=== PATIENT | female | born 1960 | race African-American/Black ===

== ENCOUNTER 2017-05-09 22:41 | Emergency (ER) | payer OTHER ==
[~2017-05-09] VITALS: Ht 160 cm; Wt 58.9 kg
[2017-05-09 22:50] VITALS: Ht 160 cm; Wt 58.9 kg
[2017-05-09 22:51] VITALS: TEMP 98.5
--- NOTE | 2017-05-09 22:54 | ERD ---
ER Documentation Chief Complaint Chief Complaint Hi Blood pressure HPI The patient is a 57-year-old female, was diverted to emergency department because of high blood pressure when she arrived at [facility] from [facility]. 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 Allergies Allergies: Coded Allergies: No Known Allergy (Unverified , 05/09/17) Physical Exam Vitals Vital Signs Date Time Temp Pulse Resp B/P Pulse Ox O2 Delivery O2 Flow Rate FiO2 05/10/17 00:45 96 27 100 30 05/09/17 22:51 98.5 75 18 145/81 100 Mechanical Ventilator 05/09/17 22:50 102 30 100 30 05/09/17 22:50 98.8 102 25 165/89 98 Physical Exam Const: No acute distress. Head: Atraumatic. Eyes: Normal Conjunctiva. ENT: Normal External Ears, Nose and Mouth. Neck: Full range of motion. No meningismus.Trach Resp: Clear to auscultation bilaterally. Cardio: Regular tachycardic Abd: Soft, non distended, normal bowel sounds, non tender.GT Skin: No petechiae or rashes. Back: No midline or flank tenderness. Ext: No cyanosis, or edema. Neur: Limited due to her condition Psych: Limited due to her condition Result Diagram: 05/09/17 2326 05/09/17 2326 Results 24 hrs Laboratory Tests Test 05/09/17 23:07 05/09/17 23:26 Blood Gas Specimen Source Blood arterial Arterial Blood Date Drawn 05/09/2017 11:35:56 PM Arterial Blood pH (Temp corrected) 7.436 Arterial Blood pCO2 (Temp correct) 39.1mmhg Arterial Blood pO2 (Temp corrected) 90.7mmHG Arterial Blood HCO3 25.7mmol/L Arterial Blood Base Excess 1.5mmol/L Arterial Blood Oxygen Saturation 97.0mmHG Maury Test ACCEPTAB Arterial Blood Gas Puncture Site Right Radial Arterial Blood Carboxyhemoglobin 0.3% Arterial Blood Methemoglobin 0% Blood Gas A-a O2 Differential 77.3mmHg Oxyhemoglobin Percent 96.7% Total Hemoglobin 12.7g/dl Blood Gas Temperature 37.0C Blood Gas Respiration Rate 16.0 Blood Gas Actual Respiration Rate 26 Blood Gas Modality VENT - AC FiO2 30.0% Blood Gas Tidal Volume 450.0mL Blood Gas Mean Airway Pressure 8.5 Blood Gas Low PEEP Setting 5.0cmH2O Blood Gas Inspiratory Pressure 16.0 Blood Gas Critical Value Read Back Vanesa BAZZI Blood Gas Notified Whom BL Blood Gas Notified Time 05/09/2017 11:46:47 PM White Blood Count 10.510^3/ul Red Blood Count 3.8810^6/ul Hemoglobin 11.7g/dl Hematocrit 35.4% Mean Corpuscular Volume 91.2fl Mean Corpuscular Hemoglobin 30.2pg Mean Corpuscular Hemoglobin Concent 33.1g/dl Red Cell Distribution Width 14.3% Platelet Count 09386^3/UL Mean Platelet Volume 10.0fl Neutrophils % 72.0% Lymphocytes % 17.3% Monocytes % 9.4% Eosinophils % 0.4% Basophils % 0.5% Nucleated Red Blood Cells % 0.0/100WBC Neutrophils # 7.510^3/ul Lymphocytes # 1.810^3/ul Monocytes # 1.010^3/ul Eosinophils # 0.010^3/ul Basophils # 0.110^3/ul Nucleated Red Blood Cells # 0.010^3/ul Prothrombin Time 14.0Sec Prothrombin Time Ratio 1.1 INR International Normalized Ratio 1.07 Activated Partial Thromboplast Time 37.4Sec Sodium Level 144mmol/L Potassium Level 4.3mmol/L Chloride Level 109mmol/L Carbon Dioxide Level 24mmol/L Anion Gap 15 Blood Urea Nitrogen 14mg/dl Creatinine 0.65mg/dl Glucose Level 103mg/dl Calcium Level 9.5mg/dl Current Medications Medications (Trade) Dose Ordered Sig/Adolph Route PRN Reason Start Time Stop Time Status Last Admin Dose Admin Midazolam HCl (Versed) 5 mg ONCE PRN IV AGITATION 05/10/17 00:30 05/10/17 00:49 Procedures/MDM [address] [address] Radiology Main Line: [phone] DIAGNOSTIC IMAGING REPORT Patient: LOUIE WEST : 1960 Age: 57 Sex: F MR #: [id number] DOS: 05/09/172306 Ordering MD: MICHELLE MEAD MD Location: E/R Room/Bed: PROCEDURE: XR Chest. CLINICAL INDICATION: Chest Pain. TECHNIQUE: Single frontal view of the chest was obtained COMPARISON: None FINDINGS: Tracheostomy tube tip overlying the mid thoracic trachea. The heart and mediastinum are within normal limits. The lungs are clear. There is no pleural effusion or pneumothorax. Degenerative changes of the spine are present. IMPRESSION: 1. No acute cardiopulmonary disease. RPTAT:AAJJ Yolande Martins Physician Date Time Electronically viewed and signed by Yolande Martins Physician on 05/09/2017 23:59 QL/ CC: MICHELLE MEAD MD [place] [id number] Radiology Main Line: [phone] DIAGNOSTIC IMAGING REPORT Patient: LOUIE WEST : 1960 Age: 57 Sex: F MR #: [id number] DOS: 05/09/172306 Ordering MD: MICHELLE MEAD MD Location: E/R Room/Bed: PROCEDURE: CT BRAIN WITHOUT CONTRAST CLINICAL INDICATION: 57-year-old female with headaches. TECHNIQUE: The study was performed utilizing [employer] VCT 64-slice CT scanner. Direct axial sections were obtained from the foramen magnum to the vertex without the use of intravenous contrast material. Sagittal and coronal reformations were obtained. One or more of the following dose reduction techniques were utilized: automated exposure control, adjustment of the mA and/ or kV according to patient's size and/or use of iterative reconstruction technique. DICOM images are available. The images were viewed on a PACS workstation. CTD/vol = 45.0 mGy; Total Exam DLP = 810.3 mGy-cm. COMPARISON: CT brain May 04, 2017 and April 30, 2017 performed at [facility]. FINDINGS: There is diffuse decreasing density and volume within the previously identified hemorrhage in the left thalamus extending into the cerebral peduncle. There is mild residual blood identified within the third ventricle as well as within the occipital horns of the lateral ventricles. There is a right transfrontal ventriculoperitoneal shunt present traversing the right lateral ventricle with the tip extending through the foramen of Monro into the roof of the third ventricle without interval change. There is a adjacent linear hemorrhagic tract extending into the right thalamus and cerebral peduncle without interval change. There has been interval decrease in the size of the lateral ventricles with mild residual prominence. There is no significant midline shift. There are extensive periventricular deep white matter areas of decreased density most likely representing microangiopathic ischemic changes and minimal residual transependymal resorption of CSF. There is an old lacunar infarct within the mid daniel. There is mild prominence of the sulci and cisternal spaces consistent with diffuse volume loss. The partially visualized paranasal sinuses and left mastoid air cells are without significant abnormal soft tissue. There is mild soft tissue within the dependent portion of the right mastoid air cells without interval change. IMPRESSION: 1. Evolving left thalamic/cerebral peduncle hemorrhage with interval decrease in density and volume. 2. Mild residual intraventricular blood within the third ventricle and occipital horns. 3. Right transfrontal ventriculoperitoneal shunt with the tip in the roof of the third ventricle. 4. Linear hemorrhagic tract adjacent to the shunt extending to the right thalamus and cerebral peduncle without interval change. 5. Mild prominence of the ventricular system with interval decrease in hydrocephalus. 6. Microangiopathic ischemic changes with minimal residual transependymal resorption of CSF. 7. Old mid daniel lacunar infarct. 8. Mild dependent soft tissue within the right mastoid air cells without interval change. .Shilo Egan MD, Date Time Electronically viewed and signed by .Shilo Egan MD, MD on 05/10/2017 01:42 .M/ CC: MICHELLE MEAD MD EKG: Read by emergency physician Rate/Rhythm: Sinus tachycardia 104 beats/min QRS, ST, T-waves: No ST elevation, no T inversion Impression: Abnormal EKG MEDICAL MAKING DECISION: The patient is a 57-year-old female, with acute accelerated hypertension that improved by itself. She did not require any intervention. There is no acute process, she is stable for outpatient follow-up The differential diagnoses considered include but are not limited to anxiety attack, panic attack, acute on chronic pain Departure Diagnosis: Primary Impression: Hypertension Additional Impression: Anemia Condition: Good Comments I discussed the findings with the patient. I advised the patient to follow-up with the primary physician in about 1-2 days, sooner if needed and return if any concern. Disclaimer: Inadvertent spelling and grammatical errors are likely due to EHR/ dictation software use and do not reflect on the overall quality of patient care. Also, please note that the electronic time recorded on this note does not necessarily reflect the actual time of the patient encounter. MICHELLE MEAD MD May 09, 2017 22:54
[2017-05-09 23:46] LABS: AADO2 Arterial 77.3 mmHg (7.0-24.0); Allen Test ACCEPTAB; Arterial Base Excess 1.5 mmol/L (-3.0-3); Arterial COHb 0.3 % (0.0-3.0); Arterial Fraction of Oxyhgb 96.7 % (93.0-99.0); Arterial HCO3 25.7 mmol/L (22.0-26.0); Arterial MetHb 0 % (0.0-1.5); Arterial Total Hemglobin 12.7 g/dl (12.0-18.0); Blood Gas Mean Airway Pressure 8.5; MODE VENT - AC
[2017-05-09 23:48] LABS: BASOPHIL # 0.1 10^3/ul (0.0-0.1); BASOPHILS % 0.5 % (0.0-2.0); EOSINOPHILS % 0.4 % (0.0-7.0); HEMATOCRIT 35.4 % (37.0-47.0); HEMOGLOBIN 11.7 g/dl (12.0-16.0); LYMPHOCYTES # 1.8 10^3/ul (0.8-2.9); LYMPHOCYTES % 17.3 % (15.0-51.0); MEAN CORPUSCULAR HEMOGLOBIN 30.2 pg (29.0-33.0); MEAN CORPUSCULAR HGB CONC 33.1 g/dl (32.0-37.0); MEAN CORPUSCULAR VOLUME 91.2 fl (82.0-101.0); MONOCYTES % 9.4 % (0.0-11.0); NEUTROPHIL # 7.5 10^3/ul (1.6-7.5); PLATELET COUNT 374 10^3/UL (140-415); RED BLOOD COUNT 3.88 10^6/ul (4.20-5.40); RED CELL DISTRIBUTION WIDTH 14.3 % (11.5-14.5); WHITE BLOOD COUNT 10.5 10^3/ul (4.8-10.8)
--- NOTE | 2017-05-09 23:59 | RADRPT ---
PROCEDURE: XR Chest. CLINICAL INDICATION: Chest Pain. TECHNIQUE: Single frontal view of the chest was obtained COMPARISON: None FINDINGS: Tracheostomy tube tip overlying the mid thoracic trachea. The heart and mediastinum are within normal limits. The lungs are clear. There is no pleural effusion or pneumothorax. Degenerative changes of the spine are present. IMPRESSION: 1. No acute cardiopulmonary disease. RPTAT:AAJJ Yolande Martins Physician Date Time Electronically viewed and signed by Yolande Martins Physician on 05/09/2017 23:59 QL/
[2017-05-10 00:09] LABS: INR 1.07; PT RATIO 1.1
[2017-05-10 00:10] LABS: PARTIAL THROMBOPLASTIN TIME 37.4 Sec (25.0-35.0)
[2017-05-10 00:25] LABS: CALCIUM 9.5 mg/dl (8.4-10.2); CREATININE 0.65 mg/dl (0.44-1.00); POTASSIUM 4.3 mmol/L (3.5-5.1)
[2017-05-10] MEDS ORDERED: MIDAZOLAM 1 MG/ML 2 ML INJ IV PRN (00:30)
--- NOTE | 2017-05-10 01:42 | RADRPT ---
PROCEDURE: CT BRAIN WITHOUT CONTRAST CLINICAL INDICATION: 57-year-old female with headaches. TECHNIQUE: The study was performed utilizing [employer] VCT 64-slice CT scanner. Direct axial sections were obtained from the foramen magnum to the vertex without the use of intravenous contrast material. Sagittal and coronal reformations were obtained. One or more of the following dose reduc tion techniques were utilized: automated exposure control, adjustment of the mA and/or kV according to patient's size and/or use of iterative reconstruction technique. DICOM images are available. The images were viewed on a PACS workstation. CTD/vol = 45.0 mGy; Total Exam DLP = 810.3 mGy-cm. COMPARISON: CT brain May 04, 2017 and April 30, 2017 performed at [facility]. FINDINGS: There is diffuse decreasing density and volume within the previously identified hemorrhage in the le ft thalamus extending into the cerebral peduncle. There is mild residual blood identified within the third ventricle as well as within the occipital horns of the lateral ventricles. There is a right t ransfrontal ventriculoperitoneal shunt present traversing the right lateral ventricle with the tip e xtending through the foramen of Monro into the roof of the third ventricle without interval change. There is a adjacent linear hemorrhagic tract extending into the right thalamus and cerebral peduncle without interval change. There has been interval decrease in the size of the lateral ventricles wit h mild residual prominence. There is no significant midline shift. There are extensive periventricul ar deep white matter areas of decreased density most likely representing microangiopathic ischemic c hanges and minimal residual transependymal resorption of CSF. There is an old lacunar infarct within the mid daniel. There is mild prominence of the sulci and cisternal spaces consistent with diff use volume loss. The partially visualized paranasal sinuses and left mastoid air cells are without significant abnormal soft tissue. There is mild soft tissue within the dependent portion of the righ t mastoid air cells without interval change. IMPRESSION: 1. Evolving left thalamic/cerebral peduncle hemorrhage with interval decrease in density and volume . 2. Mild residual intraventricular blood within the third ventricle and occipital horns. 3. Right transfrontal ventriculoperitoneal shunt with the tip in the roof of the third ventricle. 4. Linear hemorrhagic tract adjacent to the shunt extending to the right thalamus and cerebral pedu ncle without interval change. 5. Mild prominence of the ventricular system with interval decrease in hydrocephalus. 6. Microangiopathic ischemic changes with minimal residual transependymal resorption of CSF. 7. Old mid daniel lacunar infarct. 8. Mild dependent soft tissue within the right mastoid air cells without interval change. .Shilo Egan MD, Date Time Electronically viewed and signed by .Shilo Egan MD, MD on 05/10/2017 01:42 .Av/
[2017-05-10 03:00] VITALS: BP 132/85; PULSE 83
[2017-05-10 04:45] VITALS: RESP 28
== END 2017-05-10 05:09 | disposition home or self-care (01) ==
LOC: E/R 22:41
DX: I10 Essential (primary) hypertension (principal); F41.9 Anxiety disorder, unspecified; R07.9 Chest pain, unspecified; R51 Headache
CPT/HCPCS: 36600; 70450; 71010; 80048; 82803; 85025; 85610; 85730; 93005; 94002; 94003; J2250; Z7610; 36415; 96374

== ENCOUNTER 2017-05-12 04:27 | Inpatient (IN) | payer OTHER ==
[2017-05-12] VITALS (7 sets, daily range): BP systolic 140–141; BP diastolic 82–92; PULSE 103; RESP 17–45; TEMP 100.7; Ht 157.5 cm; Wt 68.0 kg
[~2017-05-12] VITALS: Ht 157.5 cm; Wt 68.0 kg
[2017-05-12] MEDS ORDERED: PIPER-TAZO 3.375 GM IV (PMX) 50 ML IVPB STA (04:38)
[2017-05-12 05:55] LABS: BASOPHIL # 0.1 10^3/ul (0.0-0.1); BASOPHILS % 0.6 % (0.0-2.0); EOSINOPHILS % 0.2 % (0.0-7.0); HEMATOCRIT 36.6 % (37.0-47.0); LYMPHOCYTES % 16.6 % (15.0-51.0); MEAN CORPUSCULAR HEMOGLOBIN 29.9 pg (29.0-33.0); MEAN CORPUSCULAR HGB CONC 32.8 g/dl (32.0-37.0); MEAN PLATELET VOLUME 10.8 fl (7.4-10.4); MONOCYTE # 0.9 10^3/ul (0.3-0.9); MONOCYTES % 7.3 % (0.0-11.0); NEUTROPHIL # 9.1 10^3/ul (1.6-7.5); PLATELET COUNT 430 10^3/UL (140-415); RED BLOOD COUNT 4.02 10^6/ul (4.20-5.40); RED CELL DISTRIBUTION WIDTH 14.2 % (11.5-14.5); WHITE BLOOD COUNT 12.2 10^3/ul (4.8-10.8)
--- NOTE | 2017-05-12 05:58 | RADRPT ---
PROCEDURE: CHEST - 1 VIEW CLINICAL INDICATION: 57-year-old female with shortness of breath and sepsis. TECHNIQUE: A single frontal AP portable view of the chest was performed. The images were reviewed on a PACS workstation. COMPARISON: Chest x-ray May 09, 2017. FINDINGS: There is a tracheostomy tube in place. The cardiomediastinal silhouette is within normal limits. Chr onic lung changes are present. There is no evidence for focal consolidation. There is no evidence fo r pneumothorax. Surgical clips are seen within the right upper quadrant from prior cholecystectomy. Thoracolumbar scoliosis is present. Degenerative changes are visualized within the spine. IMPRESSION: 1. Tracheostomy tube. 2. Chronic lung changes. 3. Status post cholecystectomy. 4. Thoracolumbar scoliosis with degenerative changes. .Shilo Egan MD, Date Time Electronically viewed and signed by .Shilo Egan MD, on 05/12/2017 05:58 .M/
[2017-05-12 06:15] LABS: ADD UMIC YES; UR ASCORBIC ACID 40 mg/dL (NEGATIVE); UR BACTERIA FEW /HPF (NONE SEEN); UR BILIRUBIN (Dip) NEGATIVE (NEGATIVE); UR BLOOD (Dip) NEGATIVE (NEGATIVE); UR BUDDING YEAST MANY /HPF (NONE SEEN); UR CLARITY SLIGHTLY CLOUDY (CLEAR); UR COLOR YELLOW (YELLOW); UR GLUCOSE (Dip) NEGATIVE (NEGATIVE); UR KETONES (Dip) 1+ mg/dL (NEGATIVE); UR LEUKOCYTE ESTERASE (Dip) 1+ Leu/ul (NEGATIVE); UR MUCUS FEW /HPF (NONE SEEN); UR NITRITE (Dip) NEGATIVE (NEGATIVE); UR RBC 2 /HPF (0-5); UR SPECIFIC GRAVITY (Dip) 1.033 (1.003-1.030); UR TOTAL PROTEIN (Dip) 1+ mg/dl (NEGATIVE); UR UROBILINOGEN (Dip) 1+ mg/dL (NEGATIVE)
[2017-05-12 06:17] LABS: ALBUMIN 3.7 g/dl (3.3-4.9); ALBUMIN/GLOBULIN RATIO 0.92; BILIRUBIN,INDIRECT 0.3 mg/dl (0-1.1); BILIRUBIN,TOTAL 0.3 mg/dl (0.2-1.3); CALCIUM 9.7 mg/dl (8.4-10.2); CREATININE 0.82 mg/dl (0.44-1.00); POTASSIUM 4.1 mmol/L (3.5-5.1); TOTAL PROTEIN 7.7 g/dl (6.1-8.1)
[2017-05-12 06:24] LABS: INR 1.01; PROTIME 13.4 Sec (11.9-14.9)
[2017-05-12 06:25] LABS: PARTIAL THROMBOPLASTIN TIME 36.5 Sec (25.0-35.0)
[2017-05-12 06:28] LABS: TROPONIN-I 0.016 ng/ml (0.00-0.12)
[2017-05-12] MEDS ORDERED: ONDANSETRON 4 MG INJ IV PRN ×2 (07:00→15:00)
[2017-05-12] MEDS ORDERED: SOD CHLORIDE 0.9% 1,000 ML IV ONE ×2 (07:00)
[2017-05-12] MEDS ORDERED: ACETAMINOPHEN 325 MG TAB PO PRN (07:00)
[2017-05-12] MEDS ORDERED: SOD CHLORIDE 0.9% 500 ML IV ONE (07:00)
--- NOTE | 2017-05-12 08:14 | ERD ---
ER Documentation Chief Complaint Chief Complaint TACHYCARDIA HPI This 57-year-old female was sent from her detention facility for tachycardia. She is unfortunate chronic trach vent patient. She is nonverbal. History is obtained from paramedics. No fevers reported the patient did feel warm according to paramedics. No further symptomatic report was given. ROS Unobtainable Allergies Allergies: Coded Allergies: No Known Allergy (Unverified , 05/09/17) PMhx/Soc History of Surgery: Yes Anesthesia Reaction: Yes Hx Neurological Disorder: No Hx Respiratory Disorders: Yes (vent trach) Hx Cardiac Disorders: Yes (htn, hyperlipidemia, ) Hx Psychiatric Problems: No Hx Miscellaneous Medical Probl: No Hx Alcohol Use: No Hx Substance Use: No Hx Tobacco Use: No Smoking Status: Unknown if ever smoked Physical Exam Vitals Vital Signs Date Time Temp Pulse Resp B/P Pulse Ox O2 Delivery O2 Flow Rate FiO2 05/12/17 07:53 127 29 100 40 05/12/17 06:13 125 30 159/83 100 Mechanical Ventilator 05/12/17 05:54 116 32 100 40 05/12/17 05:00 123 22 174/123 100 Mechanical Ventilator 05/12/17 04:51 127 26 125/87 Mechanical Ventilator 05/12/17 04:47 128 36 100 40 05/12/17 04:42 100.5 117 29 125/87 100 Physical Exam Const: [] Moderate distress, appears uncomfortable Head: Atraumatic Eyes: Normal Conjunctiva ENT: Normal External Ears, Nose and Mouth. Dry mucous membranes of the mouth Neck: Full range of motion.. Trach site clean dry intact Resp: Clear to auscultation bilaterally Cardio: Regular rate and rhythm, no murmurs Abd: Soft, apparent tenderness, right abdomen with horizontal surgical incision repaired with rhiannon. non distended. Normal bowel sounds Skin: No petechiae or rashes Back: No midline or flank tenderness Ext: No cyanosis, left proximal forearm with erythematous raised area with no fluctuance with surrounding calor. Distal pulses intact all 4 extremities. Neur: Awake and alert, unable to participate with neurological exam. Positive deep tendon reflexes of the patellar area. Psych: Normal Mood and Affect Result Diagram: 05/12/17 0445 05/12/17 0613 Results 24 hrs Laboratory Tests Test 05/12/17 04:45 05/12/17 05:25 05/12/17 06:13 05/12/17 06:16 White Blood Count 12.210^3/ul Red Blood Count 4.0210^6/ul Hemoglobin 12.0g/dl Hematocrit 36.6% Mean Corpuscular Volume 91.0fl Mean Corpuscular Hemoglobin 29.9pg Mean Corpuscular Hemoglobin Concent 32.8g/dl Red Cell Distribution Width 14.2% Platelet Count 11633^3/UL Mean Platelet Volume 10.8fl Neutrophils % 75.0% Lymphocytes % 16.6% Monocytes % 7.3% Eosinophils % 0.2% Basophils % 0.6% Nucleated Red Blood Cells % 0.0/100WBC Neutrophils # 9.110^3/ul Lymphocytes # 2.010^3/ul Monocytes # 0.910^3/ul Eosinophils # 0.010^3/ul Basophils # 0.110^3/ul Nucleated Red Blood Cells # 0.010^3/ul Prothrombin Time 13.4Sec Prothrombin Time Ratio 1.0 INR International Normalized Ratio 1.01 Activated Partial Thromboplast Time 36.5Sec Lactic Acid Level 1.1mmol/L 0.9mmol/L Urine Color YELLOW Urine Clarity SLIGHTLY CLOUDY Urine pH 5.0 Urine Specific Dameron 1.033 Urine Ketones 1+mg/dL Urine Nitrite NEGATIVEmg/dL Urine Bilirubin NEGATIVEmg/dL Urine Urobilinogen 1+mg/dL Urine Leukocyte Esterase 1+Maximiliano/ul Urine Microscopic RBC 2/HPF Urine Microscopic WBC 39/HPF Urine Calcium Oxalate Crystals FEW/HPF Urine Bacteria FEW/HPF Urine Mucus FEW/HPF Urine Yeast (Budding) MANY/HPF Urine Hemoglobin NEGATIVEmg/dL Urine Glucose NEGATIVEmg/dL Urine Total Protein 1+mg/dl Sodium Level 147mmol/L Potassium Level 4.1mmol/L Chloride Level 107mmol/L Carbon Dioxide Level 28mmol/L Anion Gap 16 Blood Urea Nitrogen 25mg/dl Creatinine 0.82mg/dl Glucose Level 112mg/dl Calcium Level 9.7mg/dl Total Bilirubin 0.3mg/dl Direct Bilirubin 0.00mg/dl Indirect Bilirubin 0.3mg/dl Aspartate Amino Transf (AST/SGOT) 30IU/L Alanine Aminotransferase (ALT/SGPT) 71IU/L Alkaline Phosphatase 124IU/L Troponin I 0.016ng/ml Total Protein 7.7g/dl Albumin 3.7g/dl Globulin 4.00g/dl Albumin/Globulin Ratio 0.92 Current Medications Medications (Trade) Dose Ordered Sig/Adolph Route PRN Reason Start Time Stop Time Status Last Admin Dose Admin Piperacillin Sod/ Tazobactam Sod (Zosyn 3.375gm/ 50 ml (Pmx)) 50 ml @ 100 mls/hr ONCE STAT IVPB 05/12/17 04:38 05/12/17 05:07 DC 05/12/17 05:44 Ondansetron HCl (Zofran Inj) 4 mg ER BRIDGE PRN IV NAUSEA AND/OR VOMITING 05/12/17 07:00 05/13/17 06:59 Acetaminophen 650 mg 650 mg ER BRIDGE PRN PO MILD PAIN/FEVER 05/12/17 07:00 05/13/17 06:59 Sodium Chloride 1,000 ml @ 1,000 mls/hr Q1H ONCE IV 05/12/17 07:00 05/12/17 07:59 DC 05/12/17 07:47 Sodium Chloride 1,000 ml @ 1,000 mls/hr Q1H ONCE IV 05/12/17 07:00 05/12/17 07:59 DC 05/12/17 07:47 Sodium Chloride (NS) 500 ml @ 500 mls/hr Q1H ONCE IV 05/12/17 07:00 05/12/17 07:59 DC 05/12/17 07:48 Procedures/MDM UTI with sepsis leading to the patient's tachycardia. Respiratory status is adequate on baseline ventilator settings. Patient was treated with normal saline and given Zosyn empirically. CT abdomen pelvis is pending and patient does have evidence of surgical wounds. She also seems to have a cellulitis of her left forearm. Given her debilitated condition she definitely needs to be admitted for further antibiotic therapy and prevention of progression of her sepsis. Currently no lactic acid elevation. Spoke with be admitting the patient to telemetry. EKG interpretation: Sinus tachycardia rate of 115, normal axis, no ST or T-wave changes concerning for acute ischemia, nonspecific ST-T wave abnormality, normal intervals. Abnormal EKG clinical research monitor interpretation: Persistent sinus tachycardia without other arrhythmia Chest x-ray interpretation: See no acute process, no consolidation, no fracture , no pneumothorax, no pulmonary edema Care time greater than 35 minutes: This includes management of sepsis and debilitated patient, careful fluid administration, antibiotic administration, treatment and management of unstable vital signs, all visits patient's bedside to reassess status, review of chart, discussion with admitting doctor. Does not include billable procedure Departure Diagnosis: Primary Impression: Sepsis secondary to UTI Additional Impression: Right forearm cellulitis Condition: Serious GAIL MADDOX DO May 12, 2017 08:14
[2017-05-12 08:25] LABS: AADO2 Arterial 135.9 mmHg (7.0-24.0); Allen Test ACCEPTAB; Arterial Base Excess 3.6 mmol/L (-3.0-3); Arterial COHb 0 % (0.0-3.0); Arterial Fraction of Oxyhgb 98.2 % (93.0-99.0); Arterial HCO3 26.4 mmol/L (22.0-26.0); Arterial MetHb 0 % (0.0-1.5); Arterial Total Hemglobin 13.3 g/dl (12.0-18.0); MODE VENT - AC
[2017-05-12] MEDS ORDERED: VANCOMYCIN 1 GM (PMX) 250 ML IVPB SCH (08:30)
[2017-05-12] MEDS ORDERED: METOPROLOL 5 MG INJ IV ONE (09:30)
[2017-05-12] MEDS: ACETAMINOPHEN 650MG/20.3ML CUP GTB PRN ×3 (09:36→21:31)
[2017-05-12] MEDS ORDERED: ACET-2047 GTB (11:43)
[2017-05-12] MEDS ORDERED: HYDR-3671 GTB (11:44)
[2017-05-12] MEDS ORDERED: MULTI PO (11:44)
[2017-05-12] MEDS ORDERED: LEVE500S8 GTB (11:45)
[2017-05-12] MEDS ORDERED: LORA1TAB GTB (11:45)
[2017-05-12] MEDS ORDERED: PANT40TA3 GTB (11:46)
[2017-05-12] MEDS ORDERED: ONDA-43 GTB (11:46)
--- NOTE | 2017-05-12 11:46 | RADRPT ---
PROCEDURE: CT Abdomen and pelvis without contrast. CLINICAL INDICATION: Postop sepsis TECHNIQUE: CT scan of the abdomen and pelvis without contrast was performed on a multidetector hig h-resolution CT scan. . Coronal and sagittal reformatted images were obtained from the axial [facility] e images. Standard CT scan of the abdomen pelvis without contrast protocols were performed. The total exam CTDI equals 15.44 mGy and the total exam DLP equals 834.55 mGy-cm. One or more of the following dose reduction techniques were used: - Automated exposure control. - Adjustment of the mA and/or kV according to patient size. Use of iterative reconstruction technique. Dicom images are available COMPARISON: None. FINDINGS: There is a subcutaneous right sided ventriculostomy catheter extending into the right anterolateral lower abdominal cavity and crossing the midline terminating in the left mid abdomen. There is a isreal rostomy in place that appears within the gastric antrum. The stomach is otherwise unremarkable. The small and large bowel are unremarkable. No CT evidence of appendicitis. Negative for intra-abdominal free air, free fluid, abscesses or lymphadenopathy. Status post cholecystectomy without biliary ductal dilation. Liver spleen pancreas and adrenal gland s are unremarkable. Kidneys normal in size without calcified renal calculi, hydronephrosis or intra renal masses bilater ally. Wahl catheter within a nondistended urinary bladder which contains nondependent air likely ia trogenic. Urinary bladder is otherwise unremarkable. Atherosclerosis of the aorta but no aneurysm. There is coronary artery disease. Bibasilar dependent consolidations consistent with atelectasis. Lung bases otherwise unremarkable. Surgical staple line seen along the anterolateral right lower quadrant abdominal wall with minimal s ubcutaneous induration consistent with postoperative change. Fat containing umbilical hernia without herniated hour strangulation. Remainder of abdominal pelvic wall unremarkable. There is an S-shaped lower thoracic lumbar scoliosis with degenerative changes lower thoracic and truong mbar spine. No acute osseous findings are osteoblastic/osteolytic lesions. IMPRESSION: 1. Ventriculostomy as above. Postsurgical changes involving the anterior lateral right lower quadra nt abdominal wall as above. 2. Negative for intra-abdominal free air fluid abscesses or lymphadenopathy. 3. No evidence of calcified urinary calculi or obstructive uropathy. 4. Wahl catheter within a nondistended urinary bladder containing nondependent air likely iatrogen ic. Recommend clinical correlation. 5. Gastrostomy in place that appears in good position. 6. Status post cholecystectomy without biliary ductal dilation. 7. Bibasilar atelectasis. RPTAT:AAJJ Chung Amato Physician Date Time Electronically viewed and signed by Chung Amato Physician on 05/12/2017 11:46 BM/
[2017-05-12] MEDS: METOPROLOL 5 MG INJ IV PRN (14:25)
--- NOTE | 2017-05-12 14:32 | HP ---
AUBRIEBEN 05/12/17 1432: Date/Time of Note Date/Time of Note DATE: 05/12/17 TIME: 14:27 Assessment/Plan VTE Prophylaxis VTE Prophylaxis Intervention: SCD's Assessment/Plan Chief Complaint/Hosp Course 1. Sepsis 2. VDRF 3. tracheostomy 4. G tube 5. Obesity 6. S/p hemorrhagic CVA 7. G tube 8. Hypertension 9. Hs of seizures 10. HX of COPD 11.hx of cocaine abuse Problems: Assessment/Plan 1. Septic workout 2. Dr Newberry for pulmonary consult 3. dr Flynn for ID 4. Spoke to daughter she indicated full code HPI/ROS Admit Date/Time Admit Date/Time Hx of Present Illness Per ER note this 57-year-old female was sent from her senior living facility for tachycardia. She is recent trach-vent patient. She has a GTube. She is nonverbal. Pt has a rhiannon on head probably due to hemorrhage evacuation and abdomen surgery. There is a note from [facility] 04/29/2017 that pt arrived with seizures and hemorrhagic CVA. Pt was transferred on 2016 to SNF where she developed UTI. Incomplete database ROS Subjective hx not possible: pt non-verbal PMH/Family/Social Past Medical History unable to obtain Past Surgical History Past Surgical Hx: noncontributory, other (appemdectomy. cholecystectomy tubal ligation) Social History pt is non verbal Smoking Status: Unknown if ever smoked Drug Use: cocaine Exam/Review of Systems Vital Signs Vitals Vital Signs Date Time Temp Pulse Resp B/P Pulse Ox O2 Delivery O2 Flow Rate FiO2 05/12/17 13:39 89 37 100 40 05/12/17 12:36 100.0 127/91 Mechanical Ventilator Exam Constitutional: distress, non-verbal Head: atraumatic, normocephalic Neck: other (tracheostomy), supple Respiratory: diminished breath sounds Cardiovascular: regular rate and rhythm Gastrointestinal: other (GT present), soft Neurological: confused, other (non verbal) Labs Result Diagram: 05/12/17 0445 05/12/17 0613 Medications Medications Current Medications Acetaminophen (Tylenol Liquid) 650 mg Q4H PRN GTB PAIN AND OR ELEVATED TEMP Last administered on 05/12/17t 09:36; Admin Dose 650 MG; Start 05/12/17 at 09: 30 Metoprolol Tartrate (Lopressor) 5 mg Q6 PRN IV SBP>170; Start 05/12/17 at 14: 30 KERRY KOROMA MD 05/12/17 1619: Assessment/Plan Assessment/Plan Assessment/Plan Pt seen and examined at bedside with [employer]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 Dr Newberry consult Recent brain haemorrhage : per CT decrease size Exam/Review of Systems Labs Result Diagram: 05/12/17 0445 05/12/17 0613 BEN ALFRED May 12, 2017 14:32 KERRY KOROMA MD May 12, 2017 16:19
[2017-05-12] MEDS ORDERED: D5W-0.45 NACL + KCL 20 MEQ 1,000 ML IV SCH (14:34)
[2017-05-12] MEDS: hydrALAzine 20 MG INJ IV PRN (14:53)
[2017-05-12] MEDS ORDERED: LORAZEPAM 2 MG INJ IV PRN (15:00)
[2017-05-12] MEDS ORDERED: LORAZEPAM 1 MG TAB GTB PRN (15:00)
[2017-05-12] MEDS ORDERED: ACETAMINOPHEN 650 MG SUPP PR PRN (15:00)
[2017-05-12] MEDS ORDERED: NACL 0.9% 3 ML SYG IV SCH (15:00)
[2017-05-12] MEDS ORDERED: BISACODYL 10 MG SUPP PR PRN (15:00)
[2017-05-12] MEDS ORDERED: NA PHOSPHATE/BIPHOS 133 ML ENEMA PR PRN (15:00)
[2017-05-12] MEDS ORDERED: morphine 2 MG INJ IV PRN (16:30)
[2017-05-12] MEDS: DEXTROSE 5%-0.45% NACL 1,000 ML IV SCH (22:23)
[2017-05-12] MEDS: CEFEPIME 2GM/50 ML (PMX) 50 ML IVPB SCH (22:44)
[2017-05-12] MEDS: LEVETIRACETAM (100 MG/ML) 5ML CUP GTB SCH (22:44)
[2017-05-12] MEDS ORDERED: VANCOMYCIN IV PER PHARMACY XX SCH (23:30)
[2017-05-12] MEDS ORDERED: ACETAMINOPHEN 650MG/20.3ML CUP GTB PRN (23:30)
[2017-05-12] MEDS: VANCOMYCIN 1 GM in NS 250 ML IVPB SCH (23:53)
[2017-05-13] VITALS (26 sets, daily range): BP systolic 112–188; BP diastolic 68–120; PULSE 57–109; RESP 16–34
[2017-05-13] MEDS: ACETAMINOPHEN 650MG/20.3ML CUP GTB PRN ×3 (02:10→23:40)
[2017-05-13] MEDS: PANTOPRAZOLE 40 MG INJ IV SCH (05:36)
[2017-05-13] MEDS: DEXTROSE 5%-0.45% NACL 1,000 ML IV SCH (06:10)
--- NOTE | 2017-05-13 06:37 | CONS ---
DATE OF ADMISSION: 05/12/2017 DATE OF CONSULTATION: 05/12/2017 TYPE OF CONSULTATION: Infectious Disease. REASON FOR CONSULTATION: Antibiotic management. HISTORY OF PRESENT ILLNESS: Helen Mares is a 57-year-old female who was sent to the emergency r oom with tachycardia. She is ventilator dependent, respiratory failure, trach dependent, is nonverb al. She had no fevers. Her other problems include hypertension and hyperlipidemia. FAMILY HISTORY: Noncontributory. SOCIAL HISTORY: She does not smoke, drink or abuse drugs. ALLERGIES: NONE TO PENICILLIN, SULFA OR FOODS. MEDICATIONS: Per chart. REVIEW OF SYSTEMS: As per HPI. PHYSICAL EXAMINATION: GENERAL: The patient is a 57-year-old female who is in moderate distress. She appears uncomfortabl e. VITAL SIGNS: Temperature is 100.5. SKIN: Without generalized rash or icterus. HEENT: Within normal limits. NECK: Tracheostomy site is clean and dry. CHEST: Decreased breath sounds at the bases. HEART: Without murmur or gallop. She is tachycardic. ABDOMEN: Soft, nontender. She has some right lower quadrant tenderness. She has a horizontal surg ical incision repaired with rhiannon. Bowel sounds are normal. EXTREMITIES: Without cyanosis, clubbing, or edema. Left forearm, proximal, with erythematous raise d areas with no fluctuance. Distal pulses are intact in all 4 extremities. RECTAL AND GENITAL: Deferred. NEUROLOGIC: No focal neurological abnormalities. She has good deep tendon reflexes in the patellar area. LABORATORY DATA: Her white count is 12.2, H and H are 12 and 36.6, platelet count 430,000. BUN and creatinine 25/0.82. Urinalysis shows positive leukocyte esterase, 39 white cells per high-powered field. There are a few bacteria, many yeast in the urinalysis. The patient was begun on Zosyn 3.37 5 grams IV piggyback q.8h. The feeling was that she had UTI with sepsis and tachycardia. She recei nadine normal saline for fluid. A CT scan of the abdomen and pelvis was done. She has a ventriculosto my, postsurgical changes along the anterolateral right lower quadrant abdominal wall as above. Nega tive for intra-abdominal fluid or air fluid abscesses. No evidence of calcified urinary calculi. F oley catheter is within a nondistended urinary bladder containing nondependent air, likely iatrogeni c. Status post cholecystectomy without biliary duct dilatation, bibasilar atelectasis. IMPRESSION AND PLAN: The patient appears to have a urinary tract infection, is on Zosyn. She has v entilator dependent respiratory failure. She has a G-tube in place. She also has a history of hemo rrhagic cerebrovascular accident in the past. She is to get a septic workup. I will dictate my fin dings to Dr. Messina and to Dr. Tapia. Dictated By: IRA FOLEY MD, JD/GALEN Conf#: [id number] DID#: [id number]
[2017-05-13 07:55] LABS: ALBUMIN 2.8 g/dl (3.3-4.9); ALBUMIN/GLOBULIN RATIO 0.77; BILIRUBIN,INDIRECT 0.5 mg/dl (0-1.1); BILIRUBIN,TOTAL 0.5 mg/dl (0.2-1.3); CALCIUM 9.2 mg/dl (8.4-10.2); CREATININE 0.69 mg/dl (0.44-1.00); MAGNESIUM 2.1 mg/dl (1.7-2.5); PHOSPHORUS 3.6 mg/dl (2.5-4.9); POTASSIUM 3.2 mmol/L (3.5-5.1); TOTAL PROTEIN 6.4 g/dl (6.1-8.1)
[2017-05-13 08:19] LABS: BASOPHILS % 0.4 % (0.0-2.0); EOSINOPHILS # 0.1 10^3/ul (0.0-0.5); EOSINOPHILS % 0.8 % (0.0-7.0); HEMATOCRIT 29.6 % (37.0-47.0); HEMOGLOBIN 9.4 g/dl (12.0-16.0); LYMPHOCYTES % 25.8 % (15.0-51.0); MEAN CORPUSCULAR HEMOGLOBIN 29.8 pg (29.0-33.0); MEAN CORPUSCULAR HGB CONC 31.8 g/dl (32.0-37.0); MEAN PLATELET VOLUME 10.6 fl (7.4-10.4); MONOCYTE # 0.8 10^3/ul (0.3-0.9); MONOCYTES % 11.1 % (0.0-11.0); NEUTROPHIL # 4.7 10^3/ul (1.6-7.5); NEUTROPHILS % 61.5 % (39.0-77.0); PLATELET COUNT 371 10^3/UL (140-415); RED BLOOD COUNT 3.15 10^6/ul (4.20-5.40); RED CELL DISTRIBUTION WIDTH 14.4 % (11.5-14.5); WHITE BLOOD COUNT 7.6 10^3/ul (4.8-10.8)
[2017-05-13] MEDS: LEVETIRACETAM (100 MG/ML) 5ML CUP GTB SCH ×2 (08:58→20:46)
[2017-05-13] MEDS: hydrALAzine 20 MG INJ IV PRN (08:58)
[2017-05-13] MEDS: CEFEPIME 2GM/50 ML (PMX) 50 ML IVPB SCH ×2 (08:58→20:47)
[2017-05-13] MEDS: VANCOMYCIN 1 GM in NS 250 ML IVPB SCH ×2 (11:32→23:10)
--- NOTE | 2017-05-13 13:57 | PN ---
BEN ALFRED 05/13/17 1357: Date/Time of Note Date/Time of Note DATE: 05/13/17 TIME: 13:54 Assessment/Plan VTE Prophylaxis VTE Prophylaxis Intervention: SCD's Lines/Catheters IV Catheter Type (from Nrsg): Saline Lock Urinary Cath still in place: Yes Reason Cath still needed: urinary retention Assessment/Plan Chief Complaint/Hosp Course 1. Sepsis 2. VDRF 3. tracheostomy 4. G tube 5. Obesity 6. S/p hemorrhagic CVA 7. Status post cholecystectomy 8. Hypertension, controlled 9. Hs of seizures 10. HX of COPD 11.hx of cocaine abuse Problems: Assessment/Plan 1. remove rhiannon 2. start tube feeding 3. electrolyte supplement 4. free water via GT Subjective 24 Hr Interval Summary Subjective hx not possible: pt non-verbal Exam/Review of Systems Vital Signs Vitals Vital Signs Date Time Temp Pulse Resp B/P Pulse Ox O2 Delivery O2 Flow Rate FiO2 05/13/17 13:10 91 17 100 40 05/13/17 12:01 98.0 160/80 05/12/17 18:51 Mechanical Ventilator Intake and Output 05/12/17 05/12/17 05/13/17 15:00 23:00 07:00 Intake Total 2750 ml 300 ml Output Total 800 ml 500 ml Balance 2750 ml -800 ml -200 ml Exam Constitutional: non-verbal, obese Head: other (rhiannon after surgical procedure) Eyes: nl conjunctiva, other (right side nystagm) Neck: other (trach), supple Respiratory: diminished breath sounds Cardiovascular: regular rate and rhythm Gastrointestinal: other (GT), soft, surgical scars Neurological: confused Results Result Diagram: 05/13/17 0632 05/13/17 0632 Results 24 hrs Laboratory Tests Test 05/12/17 15:15 05/12/17 18:41 05/13/17 06:32 Lactic Acid Level 0.9 Bedside Glucose 79 White Blood Count 7.6 # Red Blood Count 3.15 #L Hemoglobin 9.4 #L Hematocrit 29.6 L Mean Corpuscular Volume 94.0 Mean Corpuscular Hemoglobin 29.8 Mean Corpuscular Hemoglobin Concent 31.8 L Red Cell Distribution Width 14.4 Platelet Count 371 Mean Platelet Volume 10.6 H Neutrophils % 61.5 Lymphocytes % 25.8 Monocytes % 11.1 H Eosinophils % 0.8 Basophils % 0.4 Nucleated Red Blood Cells % 0.0 Neutrophils # 4.7 Lymphocytes # 2.0 Monocytes # 0.8 Eosinophils # 0.1 Basophils # 0.0 Nucleated Red Blood Cells # 0.0 Sodium Level 147 H Potassium Level 3.2 L Chloride Level 113 H Carbon Dioxide Level 26 Anion Gap 11 Blood Urea Nitrogen 19 Creatinine 0.69 Glucose Level 109 Hemoglobin A1c 5.7 Calcium Level 9.2 Phosphorus Level 3.6 Magnesium Level 2.1 Total Bilirubin 0.5 Direct Bilirubin 0.00 Indirect Bilirubin 0.5 Aspartate Amino Transf (AST/SGOT) 38 Alanine Aminotransferase (ALT/SGPT) 61 Alkaline Phosphatase 71 Total Protein 6.4 # Albumin 2.8 L Globulin 3.60 H Albumin/Globulin Ratio 0.77 Medications Medications Current Medications Acetaminophen (Tylenol Liquid) 650 mg Q4H PRN GTB PAIN AND OR ELEVATED TEMP Last administered on 05/13/17 11:32; Admin Dose 650 MG; Start 05/12/17 at 09: 30 Metoprolol Tartrate (Lopressor) 5 mg Q6 PRN IV SBP>170 Last administered on 14:25; Admin Dose 5 MG; Start 05/12/17 at 14:30 Hydralazine HCl (Apresoline) 20 mg ONCE PRN IV SBP ABOVE 160 Last administered on 05/13/17 08:58; Admin Dose 20 MG; Start 05/12/17 at 15:00; Stop 05/13/17 at 14:59 Ondansetron HCl (Zofran Inj) 4 mg Q6H PRN IV NAUSEA AND/OR VOMITING; Start at 15:00 Acetaminophen (Tylenol Supp) 650 mg Q6H PRN [place] PAIN LEVEL 1-3 OR FEVER; Start 05/12/17 at 15:00 Bisacodyl (Dulcolax Supp) 10 mg DAILY PRN [place] CONSTIPATION; Start 05/12/17 at 15:00 Sodium Biphosphate/ Sodium Phosphate (Fleet Enema) 133 ml DAILY PRN [place] CONSTIPATION; Start 05/12/17 at 15:00 Pantoprazole (Protonix Iv) 40 mg DAILY@06 IV Last administered on 05/13/17 05 :36; Admin Dose 40 MG; Start 05/13/17 at 06:00 Lorazepam (Ativan) 1 mg Q4 PRN IV ANXIETY Last administered on 05/12/17 14:52 ; Admin Dose 1 MG; Start 05/12/17 at 15:00 Levetiracetam (Keppra Liquid) 1,000 mg BID GTB Last administered on 05/13/17 08:58; Admin Dose 1,000 MG; Start 05/12/17 at 21:00 Lorazepam (Ativan) 1 mg Q6 PRN GTB ANXIETY; Start 05/12/17 at 15:00 Morphine Sulfate 2 mg 2 mg Q4 PRN IV pain Last administered on 05/12/17 17:25 ; Admin Dose 2 MG; Start 05/12/17 at 16:30 Cefepime HCl 50 ml @ 100 mls/hr Q12 IVPB Last administered on 05/13/17 08:58 ; Admin Dose 100 MLS/HR; Start 05/12/17 at 21:00 Dextrose/Sodium Chloride (D5-1/2ns) 1,000 ml @ 70 mls/hr [id number] IV Last administered on 05/12/17 22:23; Admin Dose 70 MLS/HR; Start 05/12/17 at 16:30 Acetaminophen 650 mg 650 mg Q6H PRN GTB PAIN AND OR ELEVATED TEMP; Start 05/12 at 23:30 Vancomycin HCl (Vancocin) 250 ml @ 125 mls/hr Q12H IVPB Last administered on 05/13/17 11:32; Admin Dose 125 MLS/HR; Start 05/12/17 at 23:30 Influenza Virus Vaccine (Fluzone) 0.5 ml ONCE ONCE IM* ; Start 05/15/17 at 09: 00; Stop 05/15/17 at 09:01 Miscellaneous Information (*Rx Drug Level Order Reminder*) VANCO TROUGH @ 1, 030 ON ... ONCE ONCE XX ; Start 05/14/17 at 10:30; Stop 05/14/17 at 10:31 KERRY KOROMA MD 05/13/17 1630: Assessment/Plan Assessment/Plan Assessment/Plan iv abx Spoke to daughter at bedside Exam/Review of Systems Results Result Diagram: 05/13/17 0632 05/13/17 0632 BEN ALFRED May 13, 2017 13:57 KERRY KOROMA MD May 13, 2017 16:30
[2017-05-13] MEDS ORDERED: POTASSIUM CHLORIDE 20 MEQ POWDER FOR ORAL SOLN GTB ONE (14:00)
[2017-05-13] MEDS: METOPROLOL 25 MG TAB GTB SCH ×2 (14:29→20:47)
--- NOTE | 2017-05-13 14:57 | CONS ---
DATE OF ADMISSION: 05/12/2017 DATE OF CONSULTATION: REASON FOR CONSULTATION: Ventilator management. Thank you, Dr. Armando, for this consultation. HISTORY OF PRESENT ILLNESS: This is a 57-year-old lady transferred from [facility] facility [facility] for tachycardia. The patient is unable to give me further details. She is nonverbal on mec hanical ventilation with a history of hemorrhagic CVA, encephalopathy, vent-dependent respiratory fa ilure. A few further details are available. The patient came with questionable tachycardia. PAST MEDICAL HISTORY: As above. MEDICATIONS: Per chart. ALLERGIES: NONE. SYSTEMS REVIEW: A 12-point review of systems unable to perform. PHYSICAL EXAMINATION: GENERAL: Elderly-appearing lady, somnolent on mechanical ventilation. VITAL SIGNS: Temperature is 100, blood pressure 160/78, O2 saturation 96% on 40% FIO2. NECK: Supple. No JVD or lymphadenopathy. CARDIAC: S1, S2, no added sounds or murmurs. CHEST: Diminished air entry bilaterally with rales. ABDOMEN: Soft, nontender. No guarding or rebound. EXTREMITIES: No cyanosis, clubbing, or edema. NEUROLOGIC: Generalized weakness, unable to assess. LABORATORY DATA: White count initially 12.2, now 7.6, hemoglobin 9.4, platelets 371. Chemistry: B UN 19, creatinine 0.69, sodium 147, potassium 3.2. ABG: pH 7.5, pCO2 of 34, pO2 of 110. DIAGNOSTIC DATA: Chest x-ray was reviewed, showed chronic lung changes, no new findings. CT abdome n and pelvis showed ventriculostomy in place, no free air or lymphadenopathy. IMPRESSION AND PLAN: 1. Transient tachycardia of unclear etiology. 2. Possible underlying sepsis, possible with Eliza urinary tract infection. 3. Encephalopathy. 4. Vent dependent respiratory failure. PLAN: 1. Continue vent. 2. Continue antibiotics per ID. 3. Tube feeding. 4. DVT and GI prophylaxis. 5. Consider transfer back to [facility] facility soon. Dictated By: HEAVEN CYR MD SV/GALEN Conf#: [id number] DID#: [id number] CC: JIMY ARMANDO MD; KERRY KOROMA;*EndCC*
--- NOTE | 2017-05-13 15:34 | CONS ---
Date/Time of Note Date/Time of Note DATE: 05/13/17 TIME: 15:34 Assessment/Plan Assessment/Plan Chief Complaint/Hosp Course ID PROGRESS NOTE CURRENT ABX: =>Vanco IV + Cefepime + Diflucan 24H INTERVAL SUMMARY * Awake responsive, follows commands -- Resting comfortably in the Vent w/right side weakeness, VSS, NAD, feels better * 05/12/17 BCx (-); URINE CULTURE Preliminary Organism 1 RUFINA ALBICANS COLONY COUNT >100,000 CFU/ml * 05/12/17 CXR: 1. Tracheostomy tube.2. Chronic lung changes.3. Status post cholecystectomy.4. Thoracolumbar scoliosis with degenerative changes. PHYSICAL EXAMINATION: GENERAL: 57 yo F stable on the Vent HEENT: AT, NC, anicteric NECK: Trach => Secure to Vent CHEST: Course BS HEART: RRR ABDOMEN: soft, peg : FC EXT: Warm, mild edema SKIN: No rash, no diaphoresis ID ASSESSMENT: 57 yo F w/PMHs CVA w/right sided weakness, trach, peg admit with: 1. Sepsis per sirs criteria fevers 100.5, tachycardia, Leukocytosis 2/2 UTI * BCx 05/12/17 (-)24H 2. Yeast UTI 05/12/17 URINE CULTURE Preliminary Organism 1 RUFINA ALBICANS COLONY COUNT >100,000 CFU/ml 3. Chronic VDRF w/indwelling trach * CXR w/chronic lung changes 4. Dysphagia w/peg 5. Neurogenic bladder w/suspected urinary retention, urostasis 6. Thoracolumbar scoliosis with degenerative changes. INVASIVES: PIV ABX ALLERGY: KNDA CURRENT ABX: => =>Vanco IV + Cefepime + Diflucan ID RECOMMENDATIONS/PLAN: 1. Continue current ABX over the weekend -> De-escalate ABX if BCx remain (-) and continue Diflucan 2. ABX plan of care given to daughter at bedside who expresses agreement, understanding, gratitude . Problems: Consultation Date/Type/Reason Admit Date/Time May 12, 2017 at 06:41 Initial Consult Date Exam/Review of Systems Vital Signs Vitals Vital Signs Date Time Temp Pulse Resp B/P Pulse Ox O2 Delivery O2 Flow Rate FiO2 05/13/17 15:05 73 19 100 40 05/13/17 12:01 98.0 160/80 05/12/17 18:51 Mechanical Ventilator Intake and Output 05/12/17 05/12/17 05/13/17 15:00 23:00 07:00 Intake Total 2750 ml 300 ml Output Total 800 ml 500 ml Balance 2750 ml -800 ml -200 ml Results Result Diagram: 05/13/17 0632 05/13/17 0632 Results 24 hrs Laboratory Tests Test 05/12/17 18:41 05/13/17 06:32 Bedside Glucose 79 White Blood Count 7.6 # Red Blood Count 3.15 #L Hemoglobin 9.4 #L Hematocrit 29.6 L Mean Corpuscular Volume 94.0 Mean Corpuscular Hemoglobin 29.8 Mean Corpuscular Hemoglobin Concent 31.8 L Red Cell Distribution Width 14.4 Platelet Count 371 Mean Platelet Volume 10.6 H Neutrophils % 61.5 Lymphocytes % 25.8 Monocytes % 11.1 H Eosinophils % 0.8 Basophils % 0.4 Nucleated Red Blood Cells % 0.0 Neutrophils # 4.7 Lymphocytes # 2.0 Monocytes # 0.8 Eosinophils # 0.1 Basophils # 0.0 Nucleated Red Blood Cells # 0.0 Sodium Level 147 H Potassium Level 3.2 L Chloride Level 113 H Carbon Dioxide Level 26 Anion Gap 11 Blood Urea Nitrogen 19 Creatinine 0.69 Glucose Level 109 Hemoglobin A1c 5.7 Calcium Level 9.2 Phosphorus Level 3.6 Magnesium Level 2.1 Total Bilirubin 0.5 Direct Bilirubin 0.00 Indirect Bilirubin 0.5 Aspartate Amino Transf (AST/SGOT) 38 Alanine Aminotransferase (ALT/SGPT) 61 Alkaline Phosphatase 71 Total Protein 6.4 # Albumin 2.8 L Globulin 3.60 H Albumin/Globulin Ratio 0.77 Medications Medications Current Medications Acetaminophen (Tylenol Liquid) 650 mg Q4H PRN GTB PAIN AND OR ELEVATED TEMP Last administered on 05/13/17 11:32; Admin Dose 650 MG; Start 05/12/17 at 09: 30 Metoprolol Tartrate (Lopressor) 5 mg Q6 PRN IV SBP>170 Last administered on 14:25; Admin Dose 5 MG; Start 05/12/17 at 14:30 Ondansetron HCl (Zofran Inj) 4 mg Q6H PRN IV NAUSEA AND/OR VOMITING; Start at 15:00 Acetaminophen (Tylenol Supp) 650 mg Q6H PRN [place] PAIN LEVEL 1-3 OR FEVER; Start 05/12/17 at 15:00 Bisacodyl (Dulcolax Supp) 10 mg DAILY PRN [place] CONSTIPATION; Start 05/12/17 at 15:00 Sodium Biphosphate/ Sodium Phosphate (Fleet Enema) 133 ml DAILY PRN [place] CONSTIPATION; Start 05/12/17 at 15:00 Pantoprazole (Protonix Iv) 40 mg DAILY@06 IV Last administered on 05/13/17 05 :36; Admin Dose 40 MG; Start 05/13/17 at 06:00 Lorazepam (Ativan) 1 mg Q4 PRN IV ANXIETY Last administered on 05/12/17 14:52 ; Admin Dose 1 MG; Start 05/12/17 at 15:00 Levetiracetam (Keppra Liquid) 1,000 mg BID GTB Last administered on 05/13/17 08:58; Admin Dose 1,000 MG; Start 05/12/17 at 21:00 Lorazepam (Ativan) 1 mg Q6 PRN GTB ANXIETY; Start 05/12/17 at 15:00 Morphine Sulfate 2 mg 2 mg Q4 PRN IV pain Last administered on 05/12/17 17:25 ; Admin Dose 2 MG; Start 05/12/17 at 16:30 Cefepime HCl (Maxipime 2gm/50 ml (Pmx)) 50 ml @ 100 mls/hr Q12 IVPB Last administered on 05/13/17 08:58; Admin Dose 100 MLS/HR; Start 05/12/17 at 21: 00 Acetaminophen 650 mg 650 mg Q6H PRN GTB PAIN AND OR ELEVATED TEMP; Start 05/12 at 23:30 Vancomycin HCl (Vancocin) 250 ml @ 125 mls/hr Q12H IVPB Last administered on 05/13/17 11:32; Admin Dose 125 MLS/HR; Start 05/12/17 at 23:30 Influenza Virus Vaccine (Fluzone) 0.5 ml ONCE ONCE IM* ; Start 05/15/17 at 09: 00; Stop 05/15/17 at 09:01 Miscellaneous Information (*Rx Drug Level Order Reminder*) VANCO TROUGH @ 1, 030 ON ... ONCE ONCE XX ; Start 05/14/17 at 10:30; Stop 05/14/17 at 10:31 Metoprolol Tartrate (Lopressor) 25 mg BID GTB Last administered on 05/13/17t 14:29; Admin Dose 25 MG; Start 05/13/17 at 14:00 Hydralazine HCl 25 mg 25 mg BID GTB ; Start 05/13/17 at 21:00 Fluconazole (Diflucan 200 Mg/ NS (Pmx)) 100 ml @ 100 mls/hr Q24H IVPB ; Start 05/13/17 at 16:00 MIRA DUMONT NP May 13, 2017 15:34
[2017-05-13] MEDS: METOPROLOL 5 MG INJ IV PRN (15:46)
[2017-05-13] MEDS: FLUCONAZOLE 200 MG/NS (PMX) 100 ML IVPB SCH (16:38)
[2017-05-14] VITALS (35 sets, daily range): BP systolic 83–172; BP diastolic 48–94; PULSE 42–97; RESP 16–36
--- NOTE | 2017-05-14 00:28 | EN ---
Date/Time of Note Date/Time of Note DATE: 05/14/17 TIME: 00:12 Event Note Medicine Medicine Event Note [employer]ERA REPAIR TECHNICIAN note Was called to the room assess the patient for hypotension. Patient also had a fever of 100.7. Currently being treated with abx. She is baseline non- responsive however she usually is more awake with her eyes open. BP 70/40 when CAMERA REPAIR TECHNICIAN was called. She receive hydralazine approximately at 8:30 for bp was 188 systolic. General: patient non responsive to verbal stimuli, grimaces at times to vigorous sternal rub. CVS; sinus bradycardia. Lungs: clear to auscultation Neuro: Non-responsive, grimaces at times to vigorous sternal rub (baseline she usually is awake with eyes open) Telemetry reading: sinus bradycardia at 56 bpm a/p: Severe sepsis: currently on abx and antifungals already. Will check stat cbc, bmp, lactate. Will give fluid challenge of 1000cc bolus of normal saline and additional fluid if indicated. Primary doctor was notified by the nurse. If blood pressure does not improve despite fluid challenge, will transfer patient to ICU and initiate pressors. Greater than 35 minutes of critical care time was spent on the care and management of this patient. DEX DAVISON May 14, 2017 00:24
[2017-05-14 00:35] LABS: BASOPHILS % 0.2 % (0.0-2.0); EOSINOPHILS # 0.1 10^3/ul (0.0-0.5); EOSINOPHILS % 0.8 % (0.0-7.0); HEMATOCRIT 27.9 % (37.0-47.0); HEMOGLOBIN 8.8 g/dl (12.0-16.0); LYMPHOCYTES # 1.4 10^3/ul (0.8-2.9); LYMPHOCYTES % 15.9 % (15.0-51.0); MEAN CORPUSCULAR HEMOGLOBIN 29.8 pg (29.0-33.0); MEAN CORPUSCULAR HGB CONC 31.5 g/dl (32.0-37.0); MEAN CORPUSCULAR VOLUME 94.6 fl (82.0-101.0); MONOCYTE # 0.6 10^3/ul (0.3-0.9); MONOCYTES % 6.1 % (0.0-11.0); NEUTROPHILS % 76.8 % (39.0-77.0); PLATELET COUNT 362 10^3/UL (140-415); RED BLOOD COUNT 2.95 10^6/ul (4.20-5.40); RED CELL DISTRIBUTION WIDTH 14.2 % (11.5-14.5); WHITE BLOOD COUNT 9.1 10^3/ul (4.8-10.8)
[2017-05-14] MEDS ORDERED: SOD CHLORIDE 0.9% 500 ML IV ONE (01:00)
[2017-05-14 01:01] LABS: CALCIUM 8.5 mg/dl (8.4-10.2); CREATININE 0.71 mg/dl (0.44-1.00); POTASSIUM 3.6 mmol/L (3.5-5.1)
[2017-05-14] MEDS ORDERED: SOD CHLORIDE 0.9% 1,000 ML IV ONE ×2 (01:30)
[2017-05-14] MEDS: DEXTROSE 5%-0.45% NACL 1,000 ML IV SCH ×3 (03:02→19:37)
[2017-05-14] MEDS ORDERED: hydrALAzine 20 MG INJ IV PRN (03:30)
[2017-05-14] MEDS: PANTOPRAZOLE 40 MG INJ IV SCH (05:00)
[2017-05-14 07:49] LABS: BASOPHILS % 0.3 % (0.0-2.0); EOSINOPHILS # 0.1 10^3/ul (0.0-0.5); HEMATOCRIT 30.7 % (37.0-47.0); HEMOGLOBIN 10.2 g/dl (12.0-16.0); LYMPHOCYTES % 19.4 % (15.0-51.0); MEAN CORPUSCULAR HEMOGLOBIN 30.4 pg (29.0-33.0); MEAN CORPUSCULAR HGB CONC 33.2 g/dl (32.0-37.0); MEAN CORPUSCULAR VOLUME 91.6 fl (82.0-101.0); MEAN PLATELET VOLUME 10.1 fl (7.4-10.4); MONOCYTE # 0.7 10^3/ul (0.3-0.9); MONOCYTES % 6.9 % (0.0-11.0); NEUTROPHIL # 7.3 10^3/ul (1.6-7.5); PLATELET COUNT 408 10^3/UL (140-415); RED BLOOD COUNT 3.35 10^6/ul (4.20-5.40); RED CELL DISTRIBUTION WIDTH 14.3 % (11.5-14.5); WHITE BLOOD COUNT 10.1 10^3/ul (4.8-10.8)
[2017-05-14 08:27] LABS: CALCIUM 9.1 mg/dl (8.4-10.2); CREATININE 0.65 mg/dl (0.44-1.00); POTASSIUM 3.7 mmol/L (3.5-5.1)
[2017-05-14] MEDS: CEFEPIME 2GM/50 ML (PMX) 50 ML IVPB SCH ×2 (08:44→21:15)
[2017-05-14] MEDS: LEVETIRACETAM (100 MG/ML) 5ML CUP GTB SCH ×2 (08:44→21:15)
--- NOTE | 2017-05-14 12:03 | PN ---
Date/Time of Note Date/Time of Note DATE: 05/14/17 TIME: 11:49 Assessment/Plan VTE Prophylaxis VTE Prophylaxis Intervention: contraindicated VTE Contraindication Reason: bleeding Lines/Catheters IV Catheter Type (from Nrsg): Saline Lock Central line still needed: No Urinary Cath still in place: Yes Reason Cath still needed: urinary retention Assessment/Plan Chief Complaint/Hosp Course 57 y/o with 1. Sepsis with UTI s.p Fluid resuscitation 2. VDRF 3. tracheostomy 4. G tube 5. Obesity 6. S/p hemorrhagic CVA 7. Status post cholecystectomy 8. Hypertension, 9. Hs of seizures 10. HX of COPD 11.hx of cocaine abuse Recs - Correct BP reading? 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 incorrect readings? Exam/Review of Systems Vital Signs Vitals Vital Signs Date Time Temp Pulse Resp B/P Pulse Ox O2 Delivery O2 Flow Rate FiO2 05/14/17 11:22 84 21 97 30 05/14/17 09:34 114/64 05/14/17 08:00 98.6 05/12/17 18:51 Mechanical Ventilator Intake and Output 05/13/17 05/13/17 05/14/17 15:00 23:00 07:00 Intake Total 50 ml 1355 ml 580 ml Output Total 1500 ml 250 ml Balance 50 ml -145 ml 330 ml Exam Elderly-appearing lady, somnolent on mechanical ventilation. + Frothing noted NECK: Supple. No JVD or lymphadenopathy. CARDIAC: S1, S2, no added sounds or murmurs. CHEST: Diminished air entry ABDOMEN: Soft, nontender. No guarding or rebound.rhiannon EXTREMITIES: No cyanosis, clubbing, or edema. NEUROLOGIC: Generalized weakness, unable to assess. + Rhiannon Results Result Diagram: 05/14/17 0723 05/14/17 0723 Results 24 hrs Laboratory Tests Test 05/14/17 00:15 05/14/17 00:23 05/14/17 07:23 Bedside Glucose 113 White Blood Count 9.1 10.1 Red Blood Count 2.95 L 3.35 L Hemoglobin 8.8 L 10.2 L Hematocrit 27.9 L 30.7 L Mean Corpuscular Volume 94.6 91.6 Mean Corpuscular Hemoglobin 29.8 30.4 Mean Corpuscular Hemoglobin Concent 31.5 L 33.2 Red Cell Distribution Width 14.2 14.3 Platelet Count 362 408 Mean Platelet Volume 10.0 10.1 Neutrophils % 76.8 72.0 Lymphocytes % 15.9 19.4 Monocytes % 6.1 6.9 Eosinophils % 0.8 1.0 Basophils % 0.2 0.3 Nucleated Red Blood Cells % 0.0 0.0 Neutrophils # 7.0 7.3 Lymphocytes # 1.4 2.0 Monocytes # 0.6 0.7 Eosinophils # 0.1 0.1 Basophils # 0.0 0.0 Nucleated Red Blood Cells # 0.0 0.0 Sodium Level 143 146 H Potassium Level 3.6 3.7 Chloride Level 115 H 116 H Carbon Dioxide Level 23 20 L Anion Gap 9 14 Blood Urea Nitrogen 22 H 18 Creatinine 0.71 0.65 Glucose Level 136 134 Lactic Acid Level 1.0 Calcium Level 8.5 9.1 Medications Medications Current Medications Acetaminophen (Tylenol Liquid) 650 mg Q4H PRN GTB PAIN AND OR ELEVATED TEMP Last administered on 05/13/17t 23:40; Admin Dose 650 MG; Start 05/12/17 at 09: 30 Ondansetron HCl (Zofran Inj) 4 mg Q6H PRN IV NAUSEA AND/OR VOMITING; Start at 15:00 Acetaminophen (Tylenol Supp) 650 mg Q6H PRN [place] PAIN LEVEL 1-3 OR FEVER; Start 05/12/17 at 15:00 Bisacodyl (Dulcolax Supp) 10 mg DAILY PRN [place] CONSTIPATION; Start 05/12/17 at 15:00 Sodium Biphosphate/ Sodium Phosphate (Fleet Enema) 133 ml DAILY PRN [place] CONSTIPATION; Start 05/12/17 at 15:00 Pantoprazole (Protonix Iv) 40 mg DAILY@06 IV Last administered on 05/14/17 05 :00; Admin Dose 40 MG; Start 05/13/17 at 06:00 Lorazepam (Ativan) 1 mg Q4 PRN IV ANXIETY Last administered on 05/12/17 14:52 ; Admin Dose 1 MG; Start 05/12/17 at 15:00 Levetiracetam (Keppra Liquid) 1,000 mg BID GTB Last administered on 05/14/17 08:44; Admin Dose 1,000 MG; Start 05/12/17 at 21:00 Lorazepam (Ativan) 1 mg Q6 PRN GTB ANXIETY; Start 05/12/17 at 15:00 Morphine Sulfate 2 mg 2 mg Q4 PRN IV pain Last administered on 05/12/17 17:25 ; Admin Dose 2 MG; Start 05/12/17 at 16:30 Cefepime HCl (Maxipime 2gm/50 ml (Pmx)) 50 ml @ 100 mls/hr Q12 IVPB Last administered on 05/14/17 08:44; Admin Dose 100 MLS/HR; Start 05/12/17 at 21: 00 Acetaminophen 650 mg 650 mg Q6H PRN GTB PAIN AND OR ELEVATED TEMP; Start 05/12 at 23:30 Vancomycin HCl (Vancocin) 250 ml @ 125 mls/hr Q12H IVPB Last administered on 05/13/17 23:10; Admin Dose 125 MLS/HR; Start 05/12/17 at 23:30 Influenza Virus Vaccine (Fluzone) 0.5 ml ONCE ONCE IM* ; Start 05/15/17 at 09: 00; Stop 05/15/17 at 09:01 Metoprolol Tartrate (Lopressor) 25 mg BID GTB Last administered on 05/13/17 20:47; Admin Dose 25 MG; Start 05/13/17 at 14:00; Status Future Hold Hydralazine HCl 25 mg 25 mg BID GTB Last administered on 05/14/17 08:44; Admin Dose 25 MG; Start 05/13/17 at 21:00 Fluconazole 100 ml @ 100 mls/hr Q24H IVPB Last administered on 05/13/17 16: 38; Admin Dose 100 MLS/HR; Start 05/13/17 at 16:00 Dextrose/Sodium Chloride (D5-1/2ns) 1,000 ml @ 70 mls/hr [id number] IV Last administered on 05/14/17 03:02; Admin Dose 70 MLS/HR; Start 05/14/17 at 03:00 KERRY KOROMA MD May 14, 2017 12:02
[2017-05-14] MEDS: VANCOMYCIN 1 GM in NS 250 ML IVPB SCH ×2 (12:09→22:51)
[2017-05-14] MEDS ORDERED: ALBUMIN HUMAN 25% 100 ML IV ONE (12:30)
--- NOTE | 2017-05-14 12:55 | CONS ---
Date/Time of Note Date/Time of Note DATE: 05/14/17 TIME: 12:54 Consult Date/Type/Reason Admit Date/Time May 12, 2017 at 06:41 Initial Consult Date Type of Consultation: Pulmonary Subjective Patient comfortable this morning. No acute events. No distress. Objective Vital Signs Date Time Temp Pulse Resp B/P Pulse Ox O2 Delivery O2 Flow Rate FiO2 05/14/17 12:44 66 05/14/17 12:04 98.6 18 93/52 98 05/14/17 11:22 30 05/12/17 18:51 Mechanical Ventilator Intake and Output 05/13/17 05/13/17 05/14/17 15:00 23:00 07:00 Intake Total 50 ml 1355 ml 580 ml Output Total 1500 ml 250 ml Balance 50 ml -145 ml 330 ml Exam PHYSICAL EXAMINATION: GENERAL: Elderly-appearing lady, somnolent on mechanical ventilation. VITAL SIGNS: As above NECK: Supple. No JVD or lymphadenopathy. CARDIAC: S1, S2, no added sounds or murmurs. CHEST: Diminished air entry bilaterally with rales. ABDOMEN: Soft, nontender. No guarding or rebound. EXTREMITIES: No cyanosis, clubbing, or edema. NEUROLOGIC: Generalized weakness, unable to assess. Results/Medications Result Diagram: 05/14/17 0723 05/14/17 0723 Results 24 hrs Laboratory Tests Test 05/14/17 00:15 05/14/17 00:23 05/14/17 07:23 05/14/17 10:24 Bedside Glucose 113 White Blood Count 9.1 10.1 Red Blood Count 2.95 L 3.35 L Hemoglobin 8.8 L 10.2 L Hematocrit 27.9 L 30.7 L Mean Corpuscular Volume 94.6 91.6 Mean Corpuscular Hemoglobin 29.8 30.4 Mean Corpuscular Hemoglobin Concent 31.5 L 33.2 Red Cell Distribution Width 14.2 14.3 Platelet Count 362 408 Mean Platelet Volume 10.0 10.1 Neutrophils % 76.8 72.0 Lymphocytes % 15.9 19.4 Monocytes % 6.1 6.9 Eosinophils % 0.8 1.0 Basophils % 0.2 0.3 Nucleated Red Blood Cells % 0.0 0.0 Neutrophils # 7.0 7.3 Lymphocytes # 1.4 2.0 Monocytes # 0.6 0.7 Eosinophils # 0.1 0.1 Basophils # 0.0 0.0 Nucleated Red Blood Cells # 0.0 0.0 Sodium Level 143 146 H Potassium Level 3.6 3.7 Chloride Level 115 H 116 H Carbon Dioxide Level 23 20 L Anion Gap 9 14 Blood Urea Nitrogen 22 H 18 Creatinine 0.71 0.65 Glucose Level 136 134 Lactic Acid Level 1.0 Calcium Level 8.5 9.1 Vancomycin Level Trough 12.3 Medications Current Medications Acetaminophen (Tylenol Liquid) 650 mg Q4H PRN GTB PAIN AND OR ELEVATED TEMP Last administered on 05/13/17 23:40; Admin Dose 650 MG; Start 05/12/17 at 09: 30 Ondansetron HCl (Zofran Inj) 4 mg Q6H PRN IV NAUSEA AND/OR VOMITING; Start at 15:00 Acetaminophen (Tylenol Supp) 650 mg Q6H PRN [place] PAIN LEVEL 1-3 OR FEVER; Start 05/12/17 at 15:00 Bisacodyl (Dulcolax Supp) 10 mg DAILY PRN [place] CONSTIPATION; Start 05/12/17 at 15:00 Sodium Biphosphate/ Sodium Phosphate (Fleet Enema) 133 ml DAILY PRN [place] CONSTIPATION; Start 05/12/17 at 15:00 Pantoprazole (Protonix Iv) 40 mg DAILY@06 IV Last administered on 05/14/17 05 :00; Admin Dose 40 MG; Start 05/13/17 at 06:00 Lorazepam (Ativan) 1 mg Q4 PRN IV ANXIETY Last administered on 05/12/17 14:52 ; Admin Dose 1 MG; Start 05/12/17 at 15:00 Levetiracetam (Keppra Liquid) 1,000 mg BID GTB Last administered on 05/14/17 08:44; Admin Dose 1,000 MG; Start 05/12/17 at 21:00 Lorazepam 1 mg 1 mg Q6 PRN GTB ANXIETY; Start 05/12/17 at 15:00 Cefepime HCl (Maxipime 2gm/50 ml (Pmx)) 50 ml @ 100 mls/hr Q12 IVPB Last administered on 05/14/17 08:44; Admin Dose 100 MLS/HR; Start 05/12/17 at 21: 00 Acetaminophen 650 mg 650 mg Q6H PRN GTB PAIN AND OR ELEVATED TEMP; Start 05/12 at 23:30 Vancomycin HCl (Vancocin) 250 ml @ 125 mls/hr Q12H IVPB Last administered on 05/14/17 12:09; Admin Dose 125 MLS/HR; Start 05/12/17 at 23:30 Influenza Virus Vaccine 0.5 ml 0.5 ml ONCE ONCE IM* ; Start 05/15/17 at 09:00; Stop 05/15/17 at 09:01 Fluconazole 100 ml @ 100 mls/hr Q24H IVPB Last administered on 05/13/17 16: 38; Admin Dose 100 MLS/HR; Start 05/13/17 at 16:00 Dextrose/Sodium Chloride 1,000 ml @ 100 mls/hr Q10H IV Last administered on 03:02; Admin Dose 70 MLS/HR; Start 05/14/17 at 03:00 Albumin Human (Albumin Human 25%) 100 ml @ 100 mls/hr ONCE ONCE IV Last administered on 05/14/17 12:48; Admin Dose 100 MLS/HR; Start 05/14/17 at 12: 30; Stop 05/14/17 at 13:29 Assessment/Plan Chief Complaint/Hosp Course IMPRESSION 1. Transient tachycardia of unclear etiology. 2. Possible underlying sepsis, possible with Eliza urinary tract infection. 3. Encephalopathy. 4. Vent dependent respiratory failure. PLAN: 1. Continue vent. 2. Continue antibiotics per ID. 3. Tube feeding. 4. DVT and GI prophylaxis. 5. Mild metabolic acidosis noted. Problems: HEAVEN CYR MD, [facility] May 14, 2017 12:55
[2017-05-14] MEDS: FLUCONAZOLE 200 MG/NS (PMX) 100 ML IVPB SCH (16:39)
[2017-05-14] MEDS: NYSTATIN SUSP 5 ML CUP PO SCH (21:15)
[2017-05-14] MEDS: ACETAMINOPHEN 650MG/20.3ML CUP GTB PRN (22:51)
[2017-05-15] VITALS (28 sets, daily range): BP systolic 88–175; BP diastolic 54–88; PULSE 55–95; RESP 18–45
[2017-05-15] MEDS: DEXTROSE 5%-0.45% NACL 1,000 ML IV SCH ×3 (01:43→21:43)
[2017-05-15] MEDS: PANTOPRAZOLE 40 MG INJ IV SCH (05:07)
--- NOTE | 2017-05-15 06:26 | CONS ---
DATE OF ADMISSION: 05/12/2017 DATE OF CONSULTATION: TYPE OF CONSULTATION: Neurology. Thank you for your kind referral for evaluation of intracerebral hemorrhage and encephalopathy. HISTORY OF PRESENT ILLNESS: The patient is a 57-year-old -[place] lady who was transferred from subacute facility secondary to tachycardia. There is a note from the chart, admission note from [facility] dated 04/29/2017, where it stated that the patient presented with seizure and hemorrhagic cerebral infarction. No other details of previous history available. Apparently patient had ventriculostomy placed, required tracheostomy and G-tube placement. Forgot to mention that the patient had an episode of hypotension, as well as fever 100.7 this morning, blood pressure was 70/40, with bradycardia at 56, treated with a liter of fluid bolus. The patient's medications includes Fluconazole, Protonix, vancomycin, Keppra 1000 twice daily, cefepime, MEDICATIONS PRIOR TO ADMISSION: Hydralazine, Keppra 1000 twice daily, lorazepam , Zofran, Protonix, and multivitamin. SOCIAL HISTORY: The patient is not verbal. According to history and physical examination note those stated that drug use, cocaine. ALLERGIES: NONE. FAMILY HISTORY: Unknown. LABORATORY DATA: Patient had CAT scan of the head done 4 days ago and it was compared to CT of the head, dated 05/04, and 04/30, from [facility]. According to the radiologist reading, evolving left thalamic and cerebral peduncle hemorrhage with interval decrease in intensity of volume. Mild residual intraventricular blood within the third ventricle and occipital horns, right frontal ventriculoperitoneal shunt with the tip in the roof of the third ventricle. a linear hemorrhagic tract adjacent to the shunt, mild prominence of the ventricular system with interval decrease in hydrocephalus, old mid daniel lacunar infarct. Microangiopathic ischemic changes. The patient had a chest x-ray, chronic lung changes. PHYSICAL EXAMINATION: VITAL SIGNS: Temperature 98.5, 86 pulse, 21 respirations, 110/57 blood pressure. GENERAL: Not in acute distress, lying in bed. HEENT: Normocephalic. Status post craniotomy with rhiannon in the right parietal area of the skull, possibly it was secondary to LINK ASSEMBLER shunt placement. The patient has a tracheostomy tube. NECK: Supple. LUNGS: Clear. CARDIAC: Normal cardiac rhythm and sounds. ABDOMEN: Soft. G-tube is present. EXTREMITIES: No cyanosis, clubbing or edema. NEUROLOGIC: The patient is lethargic, opens eyes to voice, follows commands such as look to the side and close the eyes. Present response to visual threat bilaterally, convergent strabismus, but extraocular movements seem to be intact at least horizontally. Corneal reflexes present bilaterally, mild right facial droop. Gag is present. Motor strength examination shows weakness in the right lower and upper extremities, flaccid tone, no movements, increased tone with some spasticity seen in the left upper and lower extremities, but also no movement spontaneously or to noxious stimuli. Deep tendon reflexes 2+ upper extremities and knees as some ankle jerks. Upgoing toes bilaterally. No rest tremor seen. LABORATORY DATA: I forgot to mention that her labs shows most recent hemoglobin 10, hematocrit 30, normal WBCs and platelets, sodium 146, chloride 116, bicarbonate 20, normal rest of comprehensive metabolic panel. Liver function tests within normal limits with exception of albumin 2.8. Urinalysis elevated WBCs 39, many bacteria, ketones were present. HIV was negative. IMPRESSION: According to the charts, the patient has a thalamic or mid brain intracerebral hemorrhage with extension into the ventricular system status post ventriculostomy placement. CAT scan shows an evolving/resolving hemorrhage with no hydrocephalus. It is not clear if it was related to hypertension. Somewhere in the history and physical examination note mentions cocaine, which might also contribute to intracerebral hemorrhage. The patient is on seizure prophylaxis with Keppra and I do not see any reports of seizures. She presented with tachycardia, labile blood pressure, had fevers, currently being treated with antibiotics. I would recommend to continue current treatments, keep patient euglycemic and normotensive with a blood pressure at least below 150/90. According to primary MD note, the patient's family is inquiring regarding prognosis. I do not see any family members at bedside right now, so I did not talk to anyone. If the patient's stroke occurred 2 weeks ago, it is quite early to talk about prognosis for recovery. Usually common approach that residual neurological deficits following a year after stroke, considered permanent. So it is definitely too early to discuss any long-term prognosis. She still has some amount of blood seen on the CAT scan and it is going to be reabsorbed. Continue current treatment. Dictated By: OPAL RUELAS/GALEN Conf#: [id number] DID#: [id number] JARETT
--- NOTE | 2017-05-15 06:33 | PN ---
DATE: 05/14/2017 SUBJECTIVE: Patient is noncommunicative, lying comfortably in bed, afebrile, T-max 100.7 last night , T-current 98.6, pulse 66, respirations 18, blood pressure 93/52, saturation 98% on vent. WBC 10.1 , no shift, no bands. BUN 18, creatinine 0.65. MICROBIOLOGY: Blood cultures remain negative. Urine culture grew Eliza albicans. DIAGNOSTICS: Chest x-ray on admission revealed chronic line changes. INDWELLINGS: Trach, PEG, Wahl. ANTIMICROBIALS: Patient is on fluconazole, vancomycin and cefepime. PHYSICAL EXAMINATION: GENERAL: This is a chronically ill-appearing, middle-aged, -[place] woman who is in no dist ress. HEENT: Head atraumatic, normocephalic. Sclerae anicteric. Buccal mucosa dry. NECK: Supple. CHEST: Rise symmetrical. Breath sounds diminished to bases. ABDOMEN: Distended, soft. Bowel tones present. EXTREMITIES: Without cyanosis. Bilateral trace edema. ASSESSMENT: 1. Sepsis, resolving. 2. Eliza albicans urinary tract infection. 3. Chronic respiratory failure. 4. Neurogenic bladder. 5. Dysphagia, status post percutaneous endoscopic gastrostomy. 6. History of hemorrhagic cerebrovascular accident. 7. Status post ventriculoperitoneal shunt placement. PLAN: Patient remains stable. Etiology of her sepsis unclear. She did have an episode of low bloo d pressure yesterday requiring a fluid bolus. She is on appropriate antimicrobials, which we will c ontinue, and repeat chest x-ray in a.m. Dictated By: MANSOOR HOBSON TEST OPERATOR for IRA YUNG/GALEN Conf#: [id number] DID#: [id number]
[2017-05-15] MEDS: CEFEPIME 2GM/50 ML (PMX) 50 ML IVPB SCH ×2 (08:56→20:46)
[2017-05-15] MEDS: NYSTATIN SUSP 5 ML CUP PO SCH ×4 (08:56→20:45)
[2017-05-15] MEDS: LEVETIRACETAM (100 MG/ML) 5ML CUP GTB SCH ×2 (08:56→20:45)
[2017-05-15] MEDS ORDERED: INFLUENZA VIRUS VACCINE 0.5 ML (DISPENSING) IM* ONE (09:00)
[2017-05-15 09:09] LABS: BASOPHILS % 0.3 % (0.0-2.0); EOSINOPHILS # 0.2 10^3/ul (0.0-0.5); EOSINOPHILS % 1.8 % (0.0-7.0); HEMATOCRIT 34.5 % (37.0-47.0); HEMOGLOBIN 11.3 g/dl (12.0-16.0); LYMPHOCYTES # 2.6 10^3/ul (0.8-2.9); LYMPHOCYTES % 28.8 % (15.0-51.0); MEAN CORPUSCULAR HEMOGLOBIN 29.7 pg (29.0-33.0); MEAN CORPUSCULAR HGB CONC 32.8 g/dl (32.0-37.0); MEAN CORPUSCULAR VOLUME 90.6 fl (82.0-101.0); MEAN PLATELET VOLUME 10.2 fl (7.4-10.4); MONOCYTE # 0.6 10^3/ul (0.3-0.9); MONOCYTES % 7.1 % (0.0-11.0); NEUTROPHIL # 5.5 10^3/ul (1.6-7.5); NEUTROPHILS % 61.7 % (39.0-77.0); PLATELET COUNT 494 10^3/UL (140-415); RED BLOOD COUNT 3.81 10^6/ul (4.20-5.40); RED CELL DISTRIBUTION WIDTH 13.9 % (11.5-14.5); WHITE BLOOD COUNT 8.9 10^3/ul (4.8-10.8)
--- NOTE | 2017-05-15 09:36 | CONS ---
Date/Time of Note Date/Time of Note DATE: 05/15/17 TIME: 09:35 Consultation Date/Type/Reason Admit Date/Time May 12, 2017 at 06:41 Type of Consultation: Palliative Care Hx of Present Illness First of all I will change CODE STATUS to DO NOT RESUSCITATE my next meeting will be to discuss hospice care. This is based upon my conversation with patient's daughter. Dictating a palliative care consultation on this 57-year-old female who is PEG trach from a subacute unit resented to [facility] with sepsis syndrome. She also has a G-tube placement she has a past medical history of stroke secondary to intracerebral hemorrhage. She has been in a significant since that time which was April of this year. Her daughter is at the bedside of been able to obtain a past medical history. She has 2 siblings but the daughter is primary decision maker she is educated and is aware of her mother's underlying serious medical condition. There are numerous brothers and sisters a patient but they are not involved with decision making any live away from this area. She has never discussed quality of life prior to this catastrophic event. There are no ethical legal or spiritual issues to be addressed. Patient quality of life is poor living in a subacute unit family members. Patient's daughter was concerned that if she had cardiopulmonary resuscitation she would have her ribs fracture this was spoken to her about by another family member who is a licensed vocational nurse,she agrees with do no harm at patient's end of life. I suggested goals of care is to continue with this current level of care but I would discuss hospice care prior to patient being discharged back to the facility. Prior to discharge patient has a post form executed. Past Surgical History Past Surgical Hx: noncontributory, other (appemdectomy. cholecystectomy tubal ligation) Social History Smoking Status: Former smoker Drug Use: cocaine Exam/Review of Systems Vital Signs Vitals Vital Signs Date Time Temp Pulse Resp B/P Pulse Ox O2 Delivery O2 Flow Rate FiO2 05/15/17 09:01 89 29 98 30 05/15/17 07:41 98.7 165/82 05/15/17 02:10 Mechanical Ventilator Intake and Output 05/14/17 05/14/17 05/15/17 15:00 23:00 07:00 Intake Total 300 ml 2490 ml 1770 ml Output Total 350 ml 550 ml Balance 300 ml 2140 ml 1220 ml Results Result Diagram: 05/14/17 0723 05/14/17 0723 Results 24 hrs Laboratory Tests Test 05/14/17 10:24 05/15/17 08:35 Vancomycin Level Trough 12.3 White Blood Count 8.9 Red Blood Count 3.81 L Hemoglobin 11.3 L Hematocrit 34.5 L Mean Corpuscular Volume 90.6 Mean Corpuscular Hemoglobin 29.7 Mean Corpuscular Hemoglobin Concent 32.8 Red Cell Distribution Width 13.9 Platelet Count 494 #H Mean Platelet Volume 10.2 Neutrophils % 61.7 Lymphocytes % 28.8 Monocytes % 7.1 Eosinophils % 1.8 Basophils % 0.3 Nucleated Red Blood Cells % 0.0 Neutrophils # 5.5 Lymphocytes # 2.6 Monocytes # 0.6 Eosinophils # 0.2 Basophils # 0.0 Nucleated Red Blood Cells # 0.0 Medications Medications Current Medications Acetaminophen (Tylenol Liquid) 650 mg Q4H PRN GTB PAIN AND OR ELEVATED TEMP Last administered on 05/14/17 22:51; Admin Dose 650 MG; Start 05/12/17 at 09: 30 Ondansetron HCl (Zofran Inj) 4 mg Q6H PRN IV NAUSEA AND/OR VOMITING; Start at 15:00 Acetaminophen (Tylenol Supp) 650 mg Q6H PRN [place] PAIN LEVEL 1-3 OR FEVER; Start 05/12/17 at 15:00 Bisacodyl (Dulcolax Supp) 10 mg DAILY PRN [place] CONSTIPATION; Start 05/12/17 at 15:00 Sodium Biphosphate/ Sodium Phosphate (Fleet Enema) 133 ml DAILY PRN [place] CONSTIPATION; Start 05/12/17 at 15:00 Pantoprazole (Protonix Iv) 40 mg DAILY@06 IV Last administered on 05/15/17 05 :07; Admin Dose 40 MG; Start 05/13/17 at 06:00 Lorazepam (Ativan) 1 mg Q4 PRN IV ANXIETY Last administered on 05/12/17 14:52 ; Admin Dose 1 MG; Start 05/12/17 at 15:00 Levetiracetam (Keppra Liquid) 1,000 mg BID GTB Last administered on 05/15/17 08:56; Admin Dose 1,000 MG; Start 05/12/17 at 21:00 Lorazepam 1 mg 1 mg Q6 PRN GTB ANXIETY; Start 05/12/17 at 15:00 Cefepime HCl (Maxipime 2gm/50 ml (Pmx)) 50 ml @ 100 mls/hr Q12 IVPB Last administered on 05/15/17 08:56; Admin Dose 100 MLS/HR; Start 05/12/17 at 21: 00 Acetaminophen 650 mg 650 mg Q6H PRN GTB PAIN AND OR ELEVATED TEMP; Start 05/12 at 23:30 Vancomycin HCl 250 ml @ 125 mls/hr Q12H IVPB Last administered on 05/14/17 22:51; Admin Dose 125 MLS/HR; Start 05/12/17 at 23:30 Fluconazole 100 ml @ 100 mls/hr Q24H IVPB Last administered on 05/14/17 16: 39; Admin Dose 100 MLS/HR; Start 05/13/17 at 16:00 Dextrose/Sodium Chloride (D5-1/2ns) 1,000 ml @ 100 mls/hr Q10H IV Last administered on 05/15/17 08:55; Admin Dose 100 MLS/HR; Start 05/14/17 at 03: 00 Nystatin (Nystatin Susp) 5 ml QID PO Last administered on 05/15/17 08:56; Admin Dose 5 ML; Start 05/14/17 at 21:00 OSEI DONALDSON May 15, 2017 09:36
[2017-05-15 09:44] LABS: PHOSPHORUS 2.8 mg/dl (2.5-4.9)
--- NOTE | 2017-05-15 09:49 | RADRPT ---
PROCEDURE: XR Chest 1 View. CLINICAL INDICATION: Shortness of breath. TECHNIQUE: Single view of the chest was obtained. COMPARISON: DR RUSS 05/12/2017 FINDINGS: The cardiomediastinal silhouette is within normal limits. Tracheostomy tube is stable and appears in grossly appropriate location. Diffuse mild interstitial prominence in both lungs is unchanged. Atel ectasis versus infiltrates are seen in the medial right lower lobe. 2.0 cm nodular density over the right lung base appears new and likely reflects nipple shadow. The osseous structures appear grossly intact. Scoliosis is unchanged. IMPRESSION: Stable diffuse interstitial prominence in both lungs. Interstitial prominence may be chronic. Atelectasis versus mild infiltrates in the perihilar right lower lobe. RPTAT: AA .Diony Ho MD, Date Time Electronically viewed and signed by .Diony Ho MD, on 05/15/2017 09:49 .P/
[2017-05-15 09:56] LABS: ALBUMIN 3.2 g/dl (3.3-4.9); ALBUMIN/GLOBULIN RATIO 0.86; BILIRUBIN,INDIRECT 0.3 mg/dl (0-1.1); BILIRUBIN,TOTAL 0.3 mg/dl (0.2-1.3); CALCIUM 9.2 mg/dl (8.4-10.2); CREATININE 0.61 mg/dl (0.44-1.00); POTASSIUM 3.3 mmol/L (3.5-5.1); TOTAL PROTEIN 6.9 g/dl (6.1-8.1)
[2017-05-15] MEDS ORDERED: POTASSIUM CHLORIDE 250 ML IVPB ONE (11:00)
[2017-05-15] MEDS: VANCOMYCIN 1 GM in NS 250 ML IVPB SCH ×2 (11:01→22:30)
--- NOTE | 2017-05-15 11:07 | PN ---
Date/Time of Note Date/Time of Note DATE: 05/15/17 TIME: 11:07 Assessment/Plan VTE Prophylaxis VTE Prophylaxis Intervention: contraindicated Lines/Catheters IV Catheter Type (from Nrs): Saline Lock Central line still needed: Yes Urinary Cath still in place: Yes Reason Cath still needed: urinary retention Assessment/Plan Chief Complaint/Hosp Course 57 y/o with 1. Sepsis with UTI s.p Fluid resuscitation 2. VDRF 3. tracheostomy 4. G tube 5. Obesity 6. S/p hemorrhagic CVA 7. Status post cholecystectomy 8. Hypertension, 9. Hs of seizures 10. HX of COPD 11.hx of cocaine abuse R - Fluid resuscitation - c.w Cefepime and Diflucan - ID - Bld cx negative so far - [facility], Dr Smith called since stroke is new it is too early to comment on recovery - No blood thinners - DC planning Problems: Subjective 24 Hr Interval Summary Free Text/Dictation No new complains Exam/Review of Systems Vital Signs Vitals Vital Signs Date Time Temp Pulse Resp B/P Pulse Ox O2 Delivery O2 Flow Rate FiO2 05/15/17 09:01 89 29 98 30 05/15/17 07:41 98.7 165/82 05/15/17 02:10 Mechanical Ventilator Intake and Output 05/14/17 05/14/17 05/15/17 15:00 23:00 07:00 Intake Total 300 ml 2490 ml 1770 ml Output Total 350 ml 550 ml Balance 300 ml 2140 ml 1220 ml Exam Elderly-appearing lady, somnolent on mechanical ventilation. + Frothing noted NECK: Supple. No JVD or lymphadenopathy. CARDIAC: S1, S2, no added sounds or murmurs. CHEST: Diminished air entry ABDOMEN: Soft, nontender. No guarding or rebound.rhiannon EXTREMITIES: No cyanosis, clubbing, or edema. NEUROLOGIC: Generalized weakness, unable to assess. + Rhiannon Results Result Diagram: 05/15/17 0835 05/15/17 0835 Results 24 hrs Laboratory Tests Test 05/15/17 08:35 White Blood Count 8.9 Red Blood Count 3.81 L Hemoglobin 11.3 L Hematocrit 34.5 L Mean Corpuscular Volume 90.6 Mean Corpuscular Hemoglobin 29.7 Mean Corpuscular Hemoglobin Concent 32.8 Red Cell Distribution Width 13.9 Platelet Count 494 #H Mean Platelet Volume 10.2 Neutrophils % 61.7 Lymphocytes % 28.8 Monocytes % 7.1 Eosinophils % 1.8 Basophils % 0.3 Nucleated Red Blood Cells % 0.0 Neutrophils # 5.5 Lymphocytes # 2.6 Monocytes # 0.6 Eosinophils # 0.2 Basophils # 0.0 Nucleated Red Blood Cells # 0.0 Sodium Level 146 H Potassium Level 3.3 L Chloride Level 113 H Carbon Dioxide Level 22 Anion Gap 14 Blood Urea Nitrogen 11 Creatinine 0.61 Glucose Level 123 Calcium Level 9.2 Phosphorus Level 2.8 Magnesium Level 2.0 Total Bilirubin 0.3 Direct Bilirubin 0.00 Indirect Bilirubin 0.3 Aspartate Amino Transf (AST/SGOT) 33 Alanine Aminotransferase (ALT/SGPT) 46 Alkaline Phosphatase 70 Total Protein 6.9 Albumin 3.2 L Globulin 3.70 H Albumin/Globulin Ratio 0.86 Medications Medications Current Medications Acetaminophen (Tylenol Liquid) 650 mg Q4H PRN GTB PAIN AND OR ELEVATED TEMP Last administered on 05/14/17 22:51; Admin Dose 650 MG; Start 05/12/17 at 09: 30 Ondansetron HCl (Zofran Inj) 4 mg Q6H PRN IV NAUSEA AND/OR VOMITING; Start at 15:00 Acetaminophen (Tylenol Supp) 650 mg Q6H PRN [place] PAIN LEVEL 1-3 OR FEVER; Start 05/12/17 at 15:00 Bisacodyl (Dulcolax Supp) 10 mg DAILY PRN [place] CONSTIPATION; Start 05/12/17 at 15:00 Sodium Biphosphate/ Sodium Phosphate (Fleet Enema) 133 ml DAILY PRN [place] CONSTIPATION; Start 05/12/17 at 15:00 Pantoprazole (Protonix Iv) 40 mg DAILY@06 IV Last administered on 05/15/17 05 :07; Admin Dose 40 MG; Start 05/13/17 at 06:00 Lorazepam (Ativan) 1 mg Q4 PRN IV ANXIETY Last administered on 05/12/17 14:52 ; Admin Dose 1 MG; Start 05/12/17 at 15:00 Levetiracetam (Keppra Liquid) 1,000 mg BID GTB Last administered on 05/15/17 08:56; Admin Dose 1,000 MG; Start 05/12/17 at 21:00 Lorazepam 1 mg 1 mg Q6 PRN GTB ANXIETY; Start 05/12/17 at 15:00 Cefepime HCl (Maxipime 2gm/50 ml (Pmx)) 50 ml @ 100 mls/hr Q12 IVPB Last administered on 05/15/17 08:56; Admin Dose 100 MLS/HR; Start 05/12/17 at 21: 00 Acetaminophen 650 mg 650 mg Q6H PRN GTB PAIN AND OR ELEVATED TEMP; Start 05/12 at 23:30 Vancomycin HCl 250 ml @ 125 mls/hr Q12H IVPB Last administered on 05/15/17 11:01; Admin Dose 125 MLS/HR; Start 05/12/17 at 23:30 Fluconazole 100 ml @ 100 mls/hr Q24H IVPB Last administered on 05/14/17 16: 39; Admin Dose 100 MLS/HR; Start 05/13/17 at 16:00 Dextrose/Sodium Chloride (D5-1/2ns) 1,000 ml @ 100 mls/hr Q10H IV Last administered on 05/15/17 08:55; Admin Dose 100 MLS/HR; Start 05/14/17 at 03: 00 Nystatin 5 ml 5 ml QID PO Last administered on 05/15/17 08:56; Admin Dose 5 ML; Start 05/14/17 at 21:00 Potassium Chloride (KCl 40 MEQ/250 ML NS) 250 ml @ 62.5 mls/hr ONCE ONCE IVPB ; Start 05/15/17 at 11:00; Stop 05/15/17 at 14:59 KERRY KOROMA MD May 15, 2017 11:07
--- NOTE | 2017-05-15 11:42 | CONS ---
Date/Time of Note Date/Time of Note DATE: 05/15/17 TIME: 11:40 Consult Date/Type/Reason Admit Date/Time May 12, 2017 at 06:41 Type of Consultation: Pulmonary Subjective Patient appears comfortable this morning. No distress. Objective Vital Signs Date Time Temp Pulse Resp B/P Pulse Ox O2 Delivery O2 Flow Rate FiO2 05/15/17 11:09 98.7 94 19 175/85 99 05/15/17 09:01 30 05/15/17 02:10 Mechanical Ventilator Intake and Output 05/14/17 05/14/17 05/15/17 15:00 23:00 07:00 Intake Total 300 ml 2490 ml 1770 ml Output Total 350 ml 550 ml Balance 300 ml 2140 ml 1220 ml Exam PHYSICAL EXAMINATION: GENERAL: Elderly-appearing lady, somnolent on mechanical ventilation. VITAL SIGNS: As above NECK: Supple. No JVD or lymphadenopathy. CARDIAC: S1, S2, no added sounds or murmurs. CHEST: Diminished air entry bilaterally with rales. ABDOMEN: Soft, nontender. No guarding or rebound. EXTREMITIES: No cyanosis, clubbing, or edema. NEUROLOGIC: Generalized weakness, unable to assess. Results/Medications Result Diagram: 05/15/17 0835 05/15/17 0835 Results 24 hrs Laboratory Tests Test 05/15/17 08:35 White Blood Count 8.9 Red Blood Count 3.81 L Hemoglobin 11.3 L Hematocrit 34.5 L Mean Corpuscular Volume 90.6 Mean Corpuscular Hemoglobin 29.7 Mean Corpuscular Hemoglobin Concent 32.8 Red Cell Distribution Width 13.9 Platelet Count 494 #H Mean Platelet Volume 10.2 Neutrophils % 61.7 Lymphocytes % 28.8 Monocytes % 7.1 Eosinophils % 1.8 Basophils % 0.3 Nucleated Red Blood Cells % 0.0 Neutrophils # 5.5 Lymphocytes # 2.6 Monocytes # 0.6 Eosinophils # 0.2 Basophils # 0.0 Nucleated Red Blood Cells # 0.0 Sodium Level 146 H Potassium Level 3.3 L Chloride Level 113 H Carbon Dioxide Level 22 Anion Gap 14 Blood Urea Nitrogen 11 Creatinine 0.61 Glucose Level 123 Calcium Level 9.2 Phosphorus Level 2.8 Magnesium Level 2.0 Total Bilirubin 0.3 Direct Bilirubin 0.00 Indirect Bilirubin 0.3 Aspartate Amino Transf (AST/SGOT) 33 Alanine Aminotransferase (ALT/SGPT) 46 Alkaline Phosphatase 70 Total Protein 6.9 Albumin 3.2 L Globulin 3.70 H Albumin/Globulin Ratio 0.86 Medications Current Medications Acetaminophen (Tylenol Liquid) 650 mg Q4H PRN GTB PAIN AND OR ELEVATED TEMP Last administered on 05/14/17 22:51; Admin Dose 650 MG; Start 05/12/17 at 09: 30 Ondansetron HCl (Zofran Inj) 4 mg Q6H PRN IV NAUSEA AND/OR VOMITING; Start at 15:00 Acetaminophen (Tylenol Supp) 650 mg Q6H PRN [place] PAIN LEVEL 1-3 OR FEVER; Start 05/12/17 at 15:00 Bisacodyl (Dulcolax Supp) 10 mg DAILY PRN [place] CONSTIPATION; Start 05/12/17 at 15:00 Sodium Biphosphate/ Sodium Phosphate (Fleet Enema) 133 ml DAILY PRN IN CONSTIPATION; Start 05/12/17 at 15:00 Pantoprazole (Protonix Iv) 40 mg DAILY@06 IV Last administered on 05/15/17 05 :07; Admin Dose 40 MG; Start 05/13/17 at 06:00 Lorazepam (Ativan) 1 mg Q4 PRN IV ANXIETY Last administered on 05/12/17 14:52 ; Admin Dose 1 MG; Start 05/12/17 at 15:00 Levetiracetam (Keppra Liquid) 1,000 mg BID GTB Last administered on 05/15/17 08:56; Admin Dose 1,000 MG; Start 05/12/17 at 21:00 Lorazepam 1 mg 1 mg Q6 PRN GTB ANXIETY; Start 05/12/17 at 15:00 Cefepime HCl (Maxipime 2gm/50 ml (Pmx)) 50 ml @ 100 mls/hr Q12 IVPB Last administered on 05/15/17 08:56; Admin Dose 100 MLS/HR; Start 05/12/17 at 21: 00 Acetaminophen 650 mg 650 mg Q6H PRN GTB PAIN AND OR ELEVATED TEMP; Start 05/12 at 23:30 Vancomycin HCl 250 ml @ 125 mls/hr Q12H IVPB Last administered on 05/15/17 11:01; Admin Dose 125 MLS/HR; Start 05/12/17 at 23:30 Fluconazole 100 ml @ 100 mls/hr Q24H IVPB Last administered on 05/14/17 16: 39; Admin Dose 100 MLS/HR; Start 05/13/17 at 16:00 Dextrose/Sodium Chloride (D5-1/2ns) 1,000 ml @ 100 mls/hr Q10H IV Last administered on 05/15/17 08:55; Admin Dose 100 MLS/HR; Start 05/14/17 at 03: 00 Nystatin 5 ml 5 ml QID PO Last administered on 05/15/17 08:56; Admin Dose 5 ML; Start 05/14/17 at 21:00 Potassium Chloride (KCl 40 MEQ/250 ML NS) 250 ml @ 62.5 mls/hr ONCE ONCE IVPB ; Start 05/15/17 at 11:00; Stop 05/15/17 at 14:59 Assessment/Plan Chief Complaint/Hosp Course IMPRESSION 1. Transient tachycardia of unclear etiology. 2. Possible underlying sepsis, possible with Eliza urinary tract infection. 3. Encephalopathy. 4. Vent dependent respiratory failure. PLAN: 1. Continue vent. 2. Continue antibiotics per ID. 3. Tube feeding. 4. DVT and GI prophylaxis. 5. Mild metabolic acidosis improved Problems: HEAVEN CYR MD, [facility] May 15, 2017 11:42
[2017-05-15] MEDS: FLUCONAZOLE 200 MG/NS (PMX) 100 ML IVPB SCH (17:39)
--- NOTE | 2017-05-15 20:39 | CONS ---
Date/Time of Note Date/Time of Note DATE: 05/15/17 TIME: 20:38 Assessment/Plan Assessment/Plan Chief Complaint/Hosp Course SUBJECTIVE: Patient is noncommunicative, lying comfortably in bed, afebrile MICROBIOLOGY: Blood cultures remain negative. Urine culture grew Eliza albicans. DIAGNOSTICS: Chest x-ray on admission revealed chronic line changes. INDWELLINGS: Trach, PEG, Wahl. ANTIMICROBIALS: Patient is on fluconazole, vancomycin and cefepime. PHYSICAL EXAMINATION: GENERAL: This is a chronically ill-appearing, middle-aged, -[place] woman who is in no distress. HEENT: Head atraumatic, normocephalic. Sclerae anicteric. Buccal mucosa dry. NECK: Supple. CHEST: Rise symmetrical. Breath sounds diminished to bases. ABDOMEN: Distended, soft. Bowel tones present. EXTREMITIES: Without cyanosis. Bilateral trace edema. ASSESSMENT: 1. Sepsis, resolving. 2. Eliza albicans urinary tract infection. 3. Chronic respiratory failure/HCAP. 4. Neurogenic bladder. 5. Dysphagia, status post percutaneous endoscopic gastrostomy. 6. History of hemorrhagic cerebrovascular accident. 7. Status post ventriculoperitoneal shunt placement. PLAN: Patient remains stable. Continue abx DW staff Problems: Consultation Date/Type/Reason Admit Date/Time May 12, 2017 at 06:41 Initial Consult Date Type of Consultation: id Exam/Review of Systems Vital Signs Vitals Vital Signs Date Time Temp Pulse Resp B/P Pulse Ox O2 Delivery O2 Flow Rate FiO2 05/15/17 20:20 55 05/15/17 20:02 98.0 20 98/54 100 05/15/17 17:06 30 05/15/17 12:49 Mechanical Ventilator Intake and Output 05/14/17 05/14/17 05/15/17 15:00 23:00 07:00 Intake Total 300 ml 2490 ml 1770 ml Output Total 350 ml 550 ml Balance 300 ml 2140 ml 1220 ml Results Result Diagram: 05/15/17 0835 05/15/17 0835 Results 24 hrs Laboratory Tests Test 05/15/17 08:35 White Blood Count 8.9 Red Blood Count 3.81 L Hemoglobin 11.3 L Hematocrit 34.5 L Mean Corpuscular Volume 90.6 Mean Corpuscular Hemoglobin 29.7 Mean Corpuscular Hemoglobin Concent 32.8 Red Cell Distribution Width 13.9 Platelet Count 494 #H Mean Platelet Volume 10.2 Neutrophils % 61.7 Lymphocytes % 28.8 Monocytes % 7.1 Eosinophils % 1.8 Basophils % 0.3 Nucleated Red Blood Cells % 0.0 Neutrophils # 5.5 Lymphocytes # 2.6 Monocytes # 0.6 Eosinophils # 0.2 Basophils # 0.0 Nucleated Red Blood Cells # 0.0 Sodium Level 146 H Potassium Level 3.3 L Chloride Level 113 H Carbon Dioxide Level 22 Anion Gap 14 Blood Urea Nitrogen 11 Creatinine 0.61 Glucose Level 123 Calcium Level 9.2 Phosphorus Level 2.8 Magnesium Level 2.0 Total Bilirubin 0.3 Direct Bilirubin 0.00 Indirect Bilirubin 0.3 Aspartate Amino Transf (AST/SGOT) 33 Alanine Aminotransferase (ALT/SGPT) 46 Alkaline Phosphatase 70 Total Protein 6.9 Albumin 3.2 L Globulin 3.70 H Albumin/Globulin Ratio 0.86 Medications Medications Current Medications Acetaminophen (Tylenol Liquid) 650 mg Q4H PRN GTB PAIN AND OR ELEVATED TEMP Last administered on 05/14/17 22:51; Admin Dose 650 MG; Start 05/12/17 at 09: 30 Ondansetron HCl (Zofran Inj) 4 mg Q6H PRN IV NAUSEA AND/OR VOMITING; Start at 15:00 Acetaminophen (Tylenol Supp) 650 mg Q6H PRN [place] PAIN LEVEL 1-3 OR FEVER; Start 05/12/17 at 15:00 Bisacodyl (Dulcolax Supp) 10 mg DAILY PRN [place] CONSTIPATION; Start 05/12/17 at 15:00 Sodium Biphosphate/ Sodium Phosphate (Fleet Enema) 133 ml DAILY PRN [place] CONSTIPATION; Start 05/12/17 at 15:00 Pantoprazole (Protonix Iv) 40 mg DAILY@06 IV Last administered on 05/15/17 05 :07; Admin Dose 40 MG; Start 05/13/17 at 06:00 Lorazepam (Ativan) 1 mg Q4 PRN IV ANXIETY Last administered on 05/12/17 14:52 ; Admin Dose 1 MG; Start 05/12/17 at 15:00 Levetiracetam (Keppra Liquid) 1,000 mg BID GTB Last administered on 05/15/17 08:56; Admin Dose 1,000 MG; Start 05/12/17 at 21:00 Lorazepam 1 mg 1 mg Q6 PRN GTB ANXIETY; Start 05/12/17 at 15:00 Cefepime HCl (Maxipime 2gm/50 ml (Pmx)) 50 ml @ 100 mls/hr Q12 IVPB Last administered on 05/15/17 08:56; Admin Dose 100 MLS/HR; Start 05/12/17 at 21: 00 Acetaminophen 650 mg 650 mg Q6H PRN GTB PAIN AND OR ELEVATED TEMP; Start 05/12 at 23:30 Vancomycin HCl 250 ml @ 125 mls/hr Q12H IVPB Last administered on 05/15/17 11:01; Admin Dose 125 MLS/HR; Start 05/12/17 at 23:30 Fluconazole 100 ml @ 100 mls/hr Q24H IVPB Last administered on 05/15/17 17: 39; Admin Dose 100 MLS/HR; Start 05/13/17 at 16:00 Dextrose/Sodium Chloride (D5-1/2ns) 1,000 ml @ 100 mls/hr Q10H IV Last administered on 05/15/17 08:55; Admin Dose 100 MLS/HR; Start 05/14/17 at 03: 00 Nystatin (Nystatin Susp) 5 ml QID PO Last administered on 05/15/17 16:41; Admin Dose 5 ML; Start 05/14/17 at 21:00 Influenza Virus Vaccine (Fluzone) 0.5 ml ONCE ONCE IM* ; Start 05/16/17 at 09: 00; Stop 05/16/17 at 09:01 MANSOOR HOBSON NP May 15, 2017 20:39
[2017-05-16] VITALS (23 sets, daily range): BP systolic 96–165; BP diastolic 57–98; PULSE 56–93; RESP 16–40
[2017-05-16] MEDS: PANTOPRAZOLE 40 MG INJ IV SCH (05:59)
[2017-05-16] MEDS ORDERED: INFLUENZA VIRUS VACCINE 0.5 ML SYG IM* ONE (09:00)
[2017-05-16] MEDS: NYSTATIN SUSP 5 ML CUP PO SCH ×4 (09:38→21:08)
[2017-05-16] MEDS: DEXTROSE 5%-0.45% NACL 1,000 ML IV SCH ×2 (09:38→11:27)
[2017-05-16] MEDS: LEVETIRACETAM (100 MG/ML) 5ML CUP GTB SCH ×2 (09:38→21:08)
[2017-05-16] MEDS: CEFEPIME 2GM/50 ML (PMX) 50 ML IVPB SCH ×2 (09:39→21:08)
[2017-05-16] MEDS: VANCOMYCIN 1 GM in NS 250 ML IVPB SCH (11:36)
--- NOTE | 2017-05-16 12:09 | CONS ---
Date/Time of Note Date/Time of Note DATE: 05/16/17 TIME: 12:04 Consult Date/Type/Reason Admit Date/Time May 12, 2017 at 06:41 Type of Consultation: Pulm Subjective Comfortable on vent. Objective Vital Signs Date Time Temp Pulse Resp B/P Pulse Ox O2 Delivery O2 Flow Rate FiO2 05/16/17 11:19 98.2 91 22 165/98 100 05/16/17 04:55 30 05/15/17 12:49 Mechanical Ventilator Intake and Output 05/15/17 05/15/17 05/16/17 15:00 23:00 07:00 Intake Total 450 ml 770 ml 1570 ml Output Total 850 ml 1000 ml Balance 450 ml -80 ml 570 ml Exam PHYSICAL EXAMINATION: GENERAL: Elderly-appearing lady, somnolent on mechanical ventilation. VITAL SIGNS: As above NECK: Supple. No JVD or lymphadenopathy. CARDIAC: S1, S2, no added sounds or murmurs. CHEST: Diminished air entry bilaterally with rales. ABDOMEN: Soft, nontender. No guarding or rebound. EXTREMITIES: No cyanosis, clubbing, or edema. NEUROLOGIC: Generalized weakness, unable to assess. Results/Medications Result Diagram: 05/15/17 0835 05/15/17 0835 Medications Current Medications Acetaminophen (Tylenol Liquid) 650 mg Q4H PRN GTB PAIN AND OR ELEVATED TEMP Last administered on 05/14/17 22:51; Admin Dose 650 MG; Start 05/12/17 at 09: 30 Ondansetron HCl (Zofran Inj) 4 mg Q6H PRN IV NAUSEA AND/OR VOMITING; Start at 15:00 Acetaminophen (Tylenol Supp) [address] PAIN LEVEL 1-3 OR FEVER; Start 05/12/17 at 15:00 Bisacodyl (Dulcolax Supp) [address] CONSTIPATION; Start 05/12/17 at 15:00 Sodium Biphosphate/ Sodium Phosphate (Fleet Enema) [address] CONSTIPATION; Start 05/12/17 at 15:00 Pantoprazole (Protonix Iv) 40 mg DAILY@06 IV Last administered on 05/16/17 05 :59; Admin Dose 40 MG; Start 05/13/17 at 06:00 Lorazepam (Ativan) 1 mg Q4 PRN IV ANXIETY Last administered on 05/12/17 14:52 ; Admin Dose 1 MG; Start 05/12/17 at 15:00 Levetiracetam (Keppra Liquid) 1,000 mg BID GTB Last administered on 05/16/17 09:38; Admin Dose 1,000 MG; Start 05/12/17 at 21:00 Lorazepam 1 mg 1 mg Q6 PRN GTB ANXIETY; Start 05/12/17 at 15:00 Cefepime HCl (Maxipime 2gm/50 ml (Pmx)) 50 ml @ 100 mls/hr Q12 IVPB Last administered on 05/16/17 09:39; Admin Dose 100 MLS/HR; Start 05/12/17 at 21: 00 Acetaminophen 650 mg 650 mg Q6H PRN GTB PAIN AND OR ELEVATED TEMP; Start 05/12 at 23:30 Vancomycin HCl 250 ml @ 125 mls/hr Q12H IVPB Last administered on 05/16/17 11:36; Admin Dose 125 MLS/HR; Start 05/12/17 at 23:30 Fluconazole 100 ml @ 100 mls/hr Q24H IVPB Last administered on 05/15/17 17: 39; Admin Dose 100 MLS/HR; Start 05/13/17 at 16:00 Dextrose/Sodium Chloride (D5-1/2ns) 1,000 ml @ 100 mls/hr Q10H IV Last administered on 05/16/17 11:27; Admin Dose 100 MLS/HR; Start 05/14/17 at 03: 00 Nystatin (Nystatin Susp) 5 ml QID PO Last administered on 05/16/17 09:38; Admin Dose 5 ML; Start 05/14/17 at 21:00 Assessment/Plan Chief Complaint/Hosp Course IMPRESSION 1. Transient tachycardia of unclear etiology. 2. Possible underlying sepsis, possible with Eliza urinary tract infection. 3. Encephalopathy. 4. Vent dependent respiratory failure. PLAN: 1. Continue vent. 2. Continue antibiotics per ID. 3. Tube feeding. 4. DVT and GI prophylaxis. 5. Mild metabolic acidosis improved agree with dc planning Problems: HEAVEN CYR MD, [facility] May 16, 2017 12:09
--- NOTE | 2017-05-16 12:46 | PN ---
Date/Time of Note Date/Time of Note DATE: 05/16/17 TIME: 12:43 Assessment/Plan VTE Prophylaxis VTE Prophylaxis Intervention: contraindicated VTE Contraindication Reason: bleeding Lines/Catheters IV Catheter Type (from Nrsg): Saline Lock Urinary Cath still in place: Yes Reason Cath still needed: urinary retention Assessment/Plan Chief Complaint/Hosp Course 57 y/o with 1. Sepsis with UTI s.p Fluid resuscitation 2. VDRF 3. tracheostomy 4. G tube 5. Obesity 6. S/p hemorrhagic CVA 7. Status post cholecystectomy 8. Hypertension, 9. Hs of seizures 10. HX of COPD 11.hx of cocaine abuse R - dc fluids - dc vanco - cx negative so far - sbp better - dc planning to [facility] if cleared by ID Problems: Subjective 24 Hr Interval Summary Free Text/Dictation No fevers overnight SBP better Exam/Review of Systems Vital Signs Vitals Vital Signs Date Time Temp Pulse Resp B/P Pulse Ox O2 Delivery O2 Flow Rate FiO2 05/16/17 11:19 98.2 91 22 165/98 100 05/16/17 04:55 30 05/15/17 12:49 Mechanical Ventilator Intake and Output 05/15/17 05/15/17 05/16/17 15:00 23:00 07:00 Intake Total 450 ml 770 ml 1570 ml Output Total 850 ml 1000 ml Balance 450 ml -80 ml 570 ml Exam lderly-appearing lady, somnolent on mechanical ventilation. + Frothing noted NECK: Supple. No JVD or lymphadenopathy. CARDIAC: S1, S2, no added sounds or murmurs. CHEST: Diminished air entry ABDOMEN: Soft, nontender. No guarding or rebound.rhiannon EXTREMITIES: No cyanosis, clubbing, or edema. NEUROLOGIC: Generalized weakness, unable to assess. + Rhiannon Results Result Diagram: 05/15/17 0835 05/15/17 0835 Medications Medications Current Medications Acetaminophen (Tylenol Liquid) 650 mg Q4H PRN GTB PAIN AND OR ELEVATED TEMP Last administered on 05/14/17t 22:51; Admin Dose 650 MG; Start 05/12/17 at 09: 30 Ondansetron HCl (Zofran Inj) 4 mg Q6H PRN IV NAUSEA AND/OR VOMITING; Start at 15:00 Acetaminophen (Tylenol Supp) 650 mg Q6H PRN [place] PAIN LEVEL 1-3 OR FEVER; Start 05/12/17 at 15:00 Bisacodyl (Dulcolax Supp) 10 mg DAILY PRN [place] CONSTIPATION; Start 05/12/17 at 15:00 Sodium Biphosphate/ Sodium Phosphate (Fleet Enema) 133 ml DAILY PRN [place] CONSTIPATION; Start 05/12/17 at 15:00 Pantoprazole (Protonix Iv) 40 mg DAILY@06 IV Last administered on 05/16/17 05 :59; Admin Dose 40 MG; Start 05/13/17 at 06:00 Lorazepam (Ativan) 1 mg Q4 PRN IV ANXIETY Last administered on 05/12/17 14:52 ; Admin Dose 1 MG; Start 05/12/17 at 15:00 Levetiracetam (Keppra Liquid) 1,000 mg BID GTB Last administered on 05/16/17 09:38; Admin Dose 1,000 MG; Start 05/12/17 at 21:00 Lorazepam 1 mg 1 mg Q6 PRN GTB ANXIETY; Start 05/12/17 at 15:00 Cefepime HCl (Maxipime 2gm/50 ml (Pmx)) 50 ml @ 100 mls/hr Q12 IVPB Last administered on 05/16/17 09:39; Admin Dose 100 MLS/HR; Start 05/12/17 at 21: 00 Acetaminophen 650 mg 650 mg Q6H PRN GTB PAIN AND OR ELEVATED TEMP; Start 05/12 at 23:30 Vancomycin HCl 250 ml @ 125 mls/hr Q12H IVPB Last administered on 05/16/17 11:36; Admin Dose 125 MLS/HR; Start 05/12/17 at 23:30 Fluconazole (Diflucan 200 Mg/ NS (Pmx)) 100 ml @ 100 mls/hr Q24H IVPB Last administered on 05/15/17 17:39; Admin Dose 100 MLS/HR; Start 05/13/17 at 16: 00 Nystatin (Nystatin Susp) 5 ml QID PO Last administered on 05/16/17 09:38; Admin Dose 5 ML; Start 05/14/17 at 21:00 KERRY KOROMA MD May 16, 2017 12:45
--- NOTE | 2017-05-16 12:49 | PDOCDIS ---
Discharge Instructions DIAGNOSIS Discharge Diagnosis Sepsis UTI CONDITION Patient Condition: Fair HOME CARE INSTRUCTIONS: Special Diet: g tube feeding ACTIVITY: Activity Restrictions Comment: bed rest, aspiration preacutions FOLLOW UP/APPOINTMENTS Follow-up Plan f/u pcp in 2 weeks Frequent suctioning S/P Trach and PEG KERRY KOROMA MD May 16, 2017 12:49
--- NOTE | 2017-05-16 15:35 | CONS ---
Date/Time of Note Date/Time of Note DATE: 05/16/17 TIME: 15:34 Assessment/Plan Assessment/Plan Chief Complaint/Hosp Course SUBJECTIVE: Remains unchanged, looks comfortable, afebrile MICROBIOLOGY: Blood cultures remain negative. Urine culture grew Eliza albicans. DIAGNOSTICS: Chest x-ray on admission revealed chronic line changes. INDWELLINGS: Trach, PEG, Wahl. ANTIMICROBIALS: Patient is on fluconazole, vancomycin and cefepime. PHYSICAL EXAMINATION: GENERAL: This is a chronically ill-appearing, middle-aged, -[place] woman who is in no distress. HEENT: Head atraumatic, normocephalic. Sclerae anicteric. Buccal mucosa dry. NECK: Supple. CHEST: Rise symmetrical. Breath sounds diminished to bases. ABDOMEN: Distended, soft. Bowel tones present. EXTREMITIES: Without cyanosis. Bilateral trace edema. ASSESSMENT: 1. Sepsis, resolving. 2. Eliza albicans urinary tract infection. 3. Chronic respiratory failure/HCAP. 4. Neurogenic bladder. 5. Dysphagia, status post percutaneous endoscopic gastrostomy. 6. History of hemorrhagic cerebrovascular accident. 7. Status post ventriculoperitoneal shunt placement. PLAN: Patient remains stable. Okay discharge on current antibiotics for 7 more days DW staff Problems: Consultation Date/Type/Reason Admit Date/Time May 12, 2017 at 06:41 Type of Consultation: id Exam/Review of Systems Vital Signs Vitals Vital Signs Date Time Temp Pulse Resp B/P Pulse Ox O2 Delivery O2 Flow Rate FiO2 05/16/17 15:31 98.0 74 16 138/63 98 05/16/17 14:45 30 05/15/17 12:49 Mechanical Ventilator Intake and Output 05/15/17 05/15/17 05/16/17 15:00 23:00 07:00 Intake Total 450 ml 770 ml 1570 ml Output Total 850 ml 1000 ml Balance 450 ml -80 ml 570 ml Results Result Diagram: 05/15/17 0835 05/15/17 0835 Medications Medications Current Medications Acetaminophen (Tylenol Liquid) 650 mg Q4H PRN GTB PAIN AND OR ELEVATED TEMP Last administered on 05/14/17t 22:51; Admin Dose 650 MG; Start 05/12/17 at 09: 30 Ondansetron HCl (Zofran Inj) 4 mg Q6H PRN IV NAUSEA AND/OR VOMITING; Start at 15:00 Acetaminophen (Tylenol Supp) 650 mg Q6H PRN [place] PAIN LEVEL 1-3 OR FEVER; Start 05/12/17 at 15:00 Bisacodyl (Dulcolax Supp) 10 mg DAILY PRN [place] CONSTIPATION; Start 05/12/17 at 15:00 Sodium Biphosphate/ Sodium Phosphate (Fleet Enema) 133 ml DAILY PRN [place] CONSTIPATION; Start 05/12/17 at 15:00 Pantoprazole (Protonix Iv) 40 mg DAILY@06 IV Last administered on 05/16/17 05 :59; Admin Dose 40 MG; Start 05/13/17 at 06:00 Lorazepam (Ativan) 1 mg Q4 PRN IV ANXIETY Last administered on 05/12/17 14:52 ; Admin Dose 1 MG; Start 05/12/17 at 15:00 Levetiracetam (Keppra Liquid) 1,000 mg BID GTB Last administered on 05/16/17 09:38; Admin Dose 1,000 MG; Start 05/12/17 at 21:00 Lorazepam 1 mg 1 mg Q6 PRN GTB ANXIETY; Start 05/12/17 at 15:00 Cefepime HCl (Maxipime 2gm/50 ml (Pmx)) 50 ml @ 100 mls/hr Q12 IVPB Last administered on 05/16/17 09:39; Admin Dose 100 MLS/HR; Start 05/12/17 at 21: 00 Acetaminophen 650 mg 650 mg Q6H PRN GTB PAIN AND OR ELEVATED TEMP; Start 05/12 at 23:30 Fluconazole (Diflucan 200 Mg/ NS (Pmx)) 100 ml @ 100 mls/hr Q24H IVPB Last administered on 05/15/17 17:39; Admin Dose 100 MLS/HR; Start 05/13/17 at 16: 00 Nystatin (Nystatin Susp) 5 ml QID PO Last administered on 05/16/17 14:47; Admin Dose 5 ML; Start 05/14/17 at 21:00 MANSOOR HOBSON NP May 16, 2017 15:35
[2017-05-16] MEDS: FLUCONAZOLE 200 MG/NS (PMX) 100 ML IVPB SCH (17:29)
[2017-05-17] VITALS (21 sets, daily range): BP systolic 94–173; BP diastolic 56–93; PULSE 58–90; RESP 18–31
[2017-05-17] MEDS: PANTOPRAZOLE 40 MG INJ IV SCH (05:53)
[2017-05-17] MEDS: NYSTATIN SUSP 5 ML CUP PO SCH ×3 (08:55→16:29)
[2017-05-17] MEDS: LEVETIRACETAM (100 MG/ML) 5ML CUP GTB SCH (08:55)
[2017-05-17] MEDS: CEFEPIME 2GM/50 ML (PMX) 50 ML IVPB SCH (08:55)
--- NOTE | 2017-05-17 10:41 | PN ---
Date/Time of Note Date/Time of Note DATE: 05/17/17 TIME: 10:41 Assessment/Plan Lines/Catheters IV Catheter Type (from Nrsg): Saline Lock Urinary Cath still in place: Yes Assessment/Plan Chief Complaint/Hosp Course 57 y/o with 1. Sepsis with UTI s.p Fluid resuscitation 2. VDRF 3. tracheostomy 4. G tube 5. Obesity 6. S/p hemorrhagic CVA 7. Status post cholecystectomy 8. Hypertension, 9. Hs of seizures 10. HX of COPD 11.hx of cocaine abuse R - dc fluids - dc vanco - cx negative so far - sbp better - dc planning to [facility] if cleared by ID Problems: Exam/Review of Systems Vital Signs Vitals Vital Signs Date Time Temp Pulse Resp B/P Pulse Ox O2 Delivery O2 Flow Rate FiO2 05/17/17 09:20 89 30 97 30 05/17/17 07:49 98.4 132/77 05/15/17 12:49 Mechanical Ventilator Intake and Output 05/16/17 05/16/17 05/17/17 15:00 23:00 07:00 Intake Total 1170 ml 720 ml Output Total 500 ml 900 ml Balance 670 ml -180 ml Results Result Diagram: 05/15/17 0835 05/15/17 0835 Medications Medications Current Medications Acetaminophen (Tylenol Liquid) 650 mg Q4H PRN GTB PAIN AND OR ELEVATED TEMP Last administered on 05/14/17 22:51; Admin Dose 650 MG; Start 05/12/17 at 09: 30 Ondansetron HCl (Zofran Inj) 4 mg Q6H PRN IV NAUSEA AND/OR VOMITING; Start at 15:00 Acetaminophen (Tylenol Supp) 650 mg Q6H PRN [place] PAIN LEVEL 1-3 OR FEVER; Start 05/12/17 at 15:00 Bisacodyl (Dulcolax Supp) 10 mg DAILY PRN [place] CONSTIPATION; Start 05/12/17 at 15:00 Sodium Biphosphate/ Sodium Phosphate (Fleet Enema) 133 ml DAILY PRN [place] CONSTIPATION; Start 05/12/17 at 15:00 Pantoprazole (Protonix Iv) 40 mg DAILY@06 IV Last administered on 05/17/17 05 :53; Admin Dose 40 MG; Start 05/13/17 at 06:00 Lorazepam (Ativan) 1 mg Q4 PRN IV ANXIETY Last administered on 05/12/17 14:52 ; Admin Dose 1 MG; Start 05/12/17 at 15:00 Levetiracetam (Keppra Liquid) 1,000 mg BID GTB Last administered on 05/17/17 08:55; Admin Dose 1,000 MG; Start 05/12/17 at 21:00 Lorazepam 1 mg 1 mg Q6 PRN GTB ANXIETY; Start 05/12/17 at 15:00 Cefepime HCl (Maxipime 2gm/50 ml (Pmx)) 50 ml @ 100 mls/hr Q12 IVPB Last administered on 05/17/17 08:55; Admin Dose 100 MLS/HR; Start 05/12/17 at 21: 00 Acetaminophen 650 mg 650 mg Q6H PRN GTB PAIN AND OR ELEVATED TEMP; Start 05/12 at 23:30 Fluconazole (Diflucan 200 Mg/ NS (Pmx)) 100 ml @ 100 mls/hr Q24H IVPB Last administered on 05/16/17 17:29; Admin Dose 100 MLS/HR; Start 05/13/17 at 16: 00 Nystatin (Nystatin Susp) 5 ml QID PO Last administered on 05/17/17 08:55; Admin Dose 5 ML; Start 05/14/17 at 21:00 KERRY KOROMA MD May 17, 2017 10:41
[2017-05-17 11:16] LABS: CALCIUM 8.8 mg/dl (8.4-10.2); CREATININE 0.6 mg/dl (0.44-1.00); POTASSIUM 3.4 mmol/L (3.5-5.1)
--- NOTE | 2017-05-17 12:15 | CONS ---
Date/Time of Note Date/Time of Note DATE: 05/17/17 TIME: 12:13 Assessment/Plan Assessment/Plan Additional Assessment/Plan Ventilator setting; AC of 16, tidal volume 450, PEEP of 5, 30% FiO2. Assessment and recommendations; 1. Patient with history of chronic respiratory failure due to severe admitted for pneumonia and sepsis. Currently on appropriate antibiotic regimen. 2. Advanced encephalopathy. Continue current supportive care. Consultation Date/Type/Reason Admit Date/Time May 12, 2017 at 06:41 Initial Consult Date Type of Consultation: Pulmonary 24 HR Interval Summary Free Text/Dictation Patient's condition remained stable. Remains awake but unresponsive to any commands. General exam; elderly woman, on ventilator via tracheostomy, awake but unresponsive to any commands. Currently in no distress. Exam/Review of Systems Vital Signs Vitals Vital Signs Date Time Temp Pulse Resp B/P Pulse Ox O2 Delivery O2 Flow Rate FiO2 05/17/17 11:23 98.9 89 20 169/87 100 05/17/17 11:15 30 05/15/17 12:49 Mechanical Ventilator Intake and Output 05/16/17 05/16/17 05/17/17 15:00 23:00 07:00 Intake Total 1170 ml 720 ml Output Total 500 ml 900 ml Balance 670 ml -180 ml Exam HEENT exam; supple neck, no JVD. No lymphadenopathy. Midline trachea. No thyromegaly. Tracheostomy in place. Patient is edentulous. Chest exam; diminished but clear breath sounds. S1-S2 audible, no murmurs. Regular rhythm. Abdomen exam; soft, G-tube in place. Nondistended. No organomegaly. Bowel sounds audible. Extremity exam; no edema. [employer] exam; patient remains awake but unresponsive. Results Result Diagram: 05/15/17 0835 05/17/17 1031 Results 24 hrs Laboratory Tests Test 05/17/17 10:31 Sodium Level 142 Potassium Level 3.4 L Chloride Level 109 Carbon Dioxide Level 26 Anion Gap 10 Blood Urea Nitrogen 9 Creatinine 0.60 Glucose Level 111 Calcium Level 8.8 Medications Medications Current Medications Acetaminophen (Tylenol Liquid) 650 mg Q4H PRN GTB PAIN AND OR ELEVATED TEMP Last administered on 05/14/17t 22:51; Admin Dose 650 MG; Start 05/12/17 at 09: 30 Ondansetron HCl (Zofran Inj) 4 mg Q6H PRN IV NAUSEA AND/OR VOMITING; Start at 15:00 Acetaminophen (Tylenol Supp) 650 mg Q6H PRN [place] PAIN LEVEL 1-3 OR FEVER; Start 05/12/17 at 15:00 Bisacodyl (Dulcolax Supp) 10 mg DAILY PRN [place] CONSTIPATION; Start 05/12/17 at 15:00 Sodium Biphosphate/ Sodium Phosphate (Fleet Enema) 133 ml DAILY PRN [place] CONSTIPATION; Start 05/12/17 at 15:00 Pantoprazole (Protonix Iv) 40 mg DAILY@06 IV Last administered on 05/17/17 05 :53; Admin Dose 40 MG; Start 05/13/17 at 06:00 Lorazepam (Ativan) 1 mg Q4 PRN IV ANXIETY Last administered on 05/12/17 14:52 ; Admin Dose 1 MG; Start 05/12/17 at 15:00 Levetiracetam (Keppra Liquid) 1,000 mg BID GTB Last administered on 05/17/17 08:55; Admin Dose 1,000 MG; Start 05/12/17 at 21:00 Lorazepam 1 mg 1 mg Q6 PRN GTB ANXIETY; Start 05/12/17 at 15:00 Cefepime HCl (Maxipime 2gm/50 ml (Pmx)) 50 ml @ 100 mls/hr Q12 IVPB Last administered on 05/17/17 08:55; Admin Dose 100 MLS/HR; Start 05/12/17 at 21: 00 Acetaminophen 650 mg 650 mg Q6H PRN GTB PAIN AND OR ELEVATED TEMP; Start 05/12 at 23:30 Fluconazole (Diflucan 200 Mg/ NS (Pmx)) 100 ml @ 100 mls/hr Q24H IVPB Last administered on 05/16/17 17:29; Admin Dose 100 MLS/HR; Start 05/13/17 at 16: 00 Nystatin (Nystatin Susp) 5 ml QID PO Last administered on 05/17/17 08:55; Admin Dose 5 ML; Start 05/14/17 at 21:00 OZIEL BELLO May 17, 2017 12:15
--- NOTE | 2017-05-17 14:27 | CONS ---
Date/Time of Note Date/Time of Note DATE: 05/17/17 TIME: 14:26 Assessment/Plan Assessment/Plan Chief Complaint/Hosp Course SUBJECTIVE: Remains unchanged, lying comfortably in bed, noncommunicative, afebrile, family at bedside MICROBIOLOGY: Blood cultures remain negative. Urine culture grew Eliza albicans. DIAGNOSTICS: Chest x-ray on admission revealed chronic line changes. INDWELLINGS: Trach, PEG, Wahl. ANTIMICROBIALS: Patient is on fluconazole, vancomycin and cefepime. PHYSICAL EXAMINATION: GENERAL: This is a chronically ill-appearing, middle-aged, -[place] woman who is in no distress. HEENT: Head atraumatic, normocephalic. Sclerae anicteric. Buccal mucosa dry. NECK: Supple. CHEST: Rise symmetrical. Breath sounds diminished to bases. ABDOMEN: Distended, soft. Bowel tones present. EXTREMITIES: Without cyanosis. Bilateral trace edema. ASSESSMENT: 1. Sepsis, resolving. 2. Eliza albicans urinary tract infection. 3. Chronic respiratory failure/HCAP. 4. Neurogenic bladder. 5. Dysphagia, status post percutaneous endoscopic gastrostomy. 6. History of hemorrhagic cerebrovascular accident. 7. Status post ventriculoperitoneal shunt placement. PLAN: Patient remains stable. Fevers resolved, continue antibiotics for 6 more days, discharge planning DW staff Problems: Consultation Date/Type/Reason Admit Date/Time May 12, 2017 at 06:41 Type of Consultation: id Exam/Review of Systems Vital Signs Vitals Vital Signs Date Time Temp Pulse Resp B/P Pulse Ox O2 Delivery O2 Flow Rate FiO2 05/17/17 13:15 75 29 96 30 05/17/17 11:23 98.9 169/87 05/15/17 12:49 Mechanical Ventilator Intake and Output 05/16/17 05/16/17 05/17/17 15:00 23:00 07:00 Intake Total 1170 ml 720 ml Output Total 500 ml 900 ml Balance 670 ml -180 ml Results Result Diagram: 05/15/17 0835 05/17/17 1031 Results 24 hrs Laboratory Tests Test 05/17/17 10:31 Sodium Level 142 Potassium Level 3.4 L Chloride Level 109 Carbon Dioxide Level 26 Anion Gap 10 Blood Urea Nitrogen 9 Creatinine 0.60 Glucose Level 111 Calcium Level 8.8 Medications Medications Current Medications Acetaminophen (Tylenol Liquid) 650 mg Q4H PRN GTB PAIN AND OR ELEVATED TEMP Last administered on 05/14/17 22:51; Admin Dose 650 MG; Start 05/12/17 at 09: 30 Ondansetron HCl (Zofran Inj) 4 mg Q6H PRN IV NAUSEA AND/OR VOMITING; Start at 15:00 Acetaminophen (Tylenol Supp) 650 mg Q6H PRN [place] PAIN LEVEL 1-3 OR FEVER; Start 05/12/17 at 15:00 Bisacodyl (Dulcolax Supp) 10 mg DAILY PRN [place] CONSTIPATION; Start 05/12/17 at 15:00 Sodium Biphosphate/ Sodium Phosphate (Fleet Enema) 133 ml DAILY PRN [place] CONSTIPATION; Start 05/12/17 at 15:00 Pantoprazole (Protonix Iv) 40 mg DAILY@06 IV Last administered on 05/17/17 05 :53; Admin Dose 40 MG; Start 05/13/17 at 06:00 Lorazepam (Ativan) 1 mg Q4 PRN IV ANXIETY Last administered on 05/12/17 14:52 ; Admin Dose 1 MG; Start 05/12/17 at 15:00 Levetiracetam (Keppra Liquid) 1,000 mg BID GTB Last administered on 05/17/17 08:55; Admin Dose 1,000 MG; Start 05/12/17 at 21:00 Lorazepam 1 mg 1 mg Q6 PRN GTB ANXIETY; Start 05/12/17 at 15:00 Cefepime HCl (Maxipime 2gm/50 ml (Pmx)) 50 ml @ 100 mls/hr Q12 IVPB Last administered on 05/17/17 08:55; Admin Dose 100 MLS/HR; Start 05/12/17 at 21: 00 Acetaminophen 650 mg 650 mg Q6H PRN GTB PAIN AND OR ELEVATED TEMP; Start 05/12 at 23:30 Fluconazole (Diflucan 200 Mg/ NS (Pmx)) 100 ml @ 100 mls/hr Q24H IVPB Last administered on 05/16/17 17:29; Admin Dose 100 MLS/HR; Start 05/13/17 at 16: 00 Nystatin (Nystatin Susp) 5 ml QID PO Last administered on 05/17/17 13:31; Admin Dose 5 ML; Start 05/14/17 at 21:00 MANSOOR HOBSON NP May 17, 2017 14:27
[2017-05-17] MEDS: FLUCONAZOLE 200 MG/NS (PMX) 100 ML IVPB SCH (16:29)
== END 2017-05-17 20:38 | DRG 870 ==
LOC: E/R 04:27 → TEL 06:41
PROVIDERS: ADMIT Internal Medicine; ATTEND Internal Medicine
PROC: 5A1955Z Respiratory Ventilation, Greater than 96 Consecutive Hours (ICD-10-PCS; principal; 2017-05-12)
DX: A41.9 Sepsis, unspecified organism (principal); G93.41 Metabolic encephalopathy; J18.9 Pneumonia, unspecified organism; J96.10 Chronic respiratory failure, unspecified whether with hypoxia or hypercapnia; Z93.0 Tracheostomy status; N39.0 Urinary tract infection, site not specified; L03.113 Cellulitis of right upper limb; B37.49 Other urogenital candidiasis; I10 Essential (primary) hypertension; N31.2 Flaccid neuropathic bladder, not elsewhere classified; Z86.73 Personal history of transient ischemic attack (TIA), and cerebral infarction without residual deficits; Z93.1 Gastrostomy status; R13.10 Dysphagia, unspecified; R65.20 Severe sepsis without septic shock; Z98.2 Presence of cerebrospinal fluid drainage device; Z66 Do not resuscitate
CPT/HCPCS: 36415; 36600; 71010; 74176; 80048; 80053; 80202; 81001; 82803; 82962; 83036; 83605; 83735; 84100; 84484; 85025; 85610; 85730; 86703; 86706; 86803; 87040; 87081; 87086; 87340; 90686; 93005; 94002; 94003; 96361; 96365; 96366; 96367; 96375; 96376; C9113; J0360; J0692; J2060; J2270; J2543; J3370; J3480; J7030; J7040; J7042; P9047